=== PATIENT | male | born 1940 | race Asian ===

== ENCOUNTER 2017-08-05 21:37 | Inpatient (IN) | payer MEDICAID, MEDICARE ==
[~2017-08-05] VITALS: Ht 177.8 cm; Wt 81.6 kg
[2017-08-05] MEDS ORDERED: Sodium Chloride 500ML 500 ML IV ONE (21:47)
[2017-08-05 22:16] LABS: BASOPHILS % (AUTO) 0.8 % (0.0-2.0); EOSINOPHILS % (AUTO) 0.3 % (0.0-3.0); HEMATOCRIT 48.8 % (42.0-52.0); HEMOGLOBIN 15.4 G/DL (14.2-18.0); LYMPHOCYTES % (AUTO) 18.9 % (20.0-45.0); MEAN CORPUSCULAR VOLUME 88 FL (80-99); MONOCYTES % (AUTO) 11.2 % (1.0-10.0); NEUTROPHILS % (AUTO) 68.8 % (45.0-75.0); PLATELET COUNT 251 K/UL (150-450); RED BLOOD COUNT 5.54 M/UL (4.70-6.10); RED CELL DISTRIBUTION WIDTH 11.5 % (11.6-14.8); WHITE BLOOD COUNT 8.1 K/UL (4.8-10.8)
[2017-08-05 22:23] VITALS: BP 153/81
[2017-08-05 22:34] LABS: ANION GAP 11 mmol/L (5-15); BLOOD UREA NITROGEN 24 mg/dL (7-18); CALCIUM 9.4 MG/DL (8.5-10.1); CARBON DIOXIDE 23 MMOL/L (21-32); CHLORIDE 103 MMOL/L (98-107); CREATININE 1.9 MG/DL (0.55-1.30); POTASSIUM 4.3 MMOL/L (3.5-5.1); SODIUM 137 MMOL/L (136-145)
[2017-08-05 22:49] LABS: ALANINE AMINOTRANSFERASE 14 U/L (12-78); ALBUMIN 4.1 G/DL (3.4-5.0); ALKALINE PHOSPHATASE 82 U/L (46-116); ASPARTATE AMINO TRANSFERASE 24 U/L (15-37); BILIRUBIN,TOTAL 0.6 MG/DL (0.2-1.0); CREATINE KINASE 337 U/L (26-308)
[2017-08-05 23:53] VITALS: BP 112/61
[2017-08-06] VITALS (7 sets, daily range): BP systolic 95–141; BP diastolic 63–86
[2017-08-06] MEDS ORDERED: NAMENDA10 MG ORAL (00:57)
[2017-08-06] MEDS ORDERED: CATAPRES0.1 MG ORAL (00:57)
[2017-08-06] MEDS ORDERED: NORVASC10 MG ORAL (00:57)
[2017-08-06] MEDS ORDERED: MILK OF MA400 MG/51 ORAL (00:57)
[2017-08-06] MEDS ORDERED: THERA M PLUS T1 EAC2 PO (00:57)
[2017-08-06] MEDS ORDERED: VITAMIN D400 INTLU ORAL (00:57)
[2017-08-06] MEDS ORDERED: THIAMINE HCL100 MG ORAL (00:57)
--- NOTE | 2017-08-06 03:23 | Emergency Room Report ---
History of Present Illness General Chief Complaint: General Complaint Source: Medical Record, EMS Present Illness HPI Patient presents from nursing facility with complaints of weakness There was a report of specific left-sided weakness Patient himself is nonverbal This does limit the history of present illness significantly There was no reports of vomiting or diarrhea Unknown regarding fever Unknown regarding rash The onset of symptoms has not been identified Last well-known time is not known Allergies: Coded Allergies: No Known Allergies (Unverified , 08/05/17) Patient History Limited by: medical condition Pertinent Family History: unable to obtain Reviewed Nursing Documentation: PMH: Agreed, PSxH: Agreed Nursing Documentation-PMH Hx Hypertension: Yes Hx Diabetes: Yes Hx Dementia: Yes Review of Systems All Other Systems: limited - Other than the ones mentioned in the history of present illness all others are reviewed however they do stay limited due to the patient's mental status Physical Exam Vital Signs Date Time Temp Pulse Resp B/P (MAP) Pulse Ox O2 Delivery O2 Flow Rate FiO2 08/05/17 21:37 100.9 69 18 165/93 98 Room Air Sp02 EP Interpretation: reviewed, normal General Appearance: no apparent distress Head: normocephalic, atraumatic Eyes: bilateral eye PERRL, bilateral eye EOMI ENT: hearing grossly normal, normal pharynx, TMs + canals normal, uvula midline , other - There is a questionable drooping of the right facial area Neck: full range of motion, supple, no meningismus, no bony tend Respiratory: lungs clear, normal breath sounds, no rhonchi, no respiratory distress, no retraction, no accessory muscle use Cardiovascular #1: normal peripheral pulses, regular rate, rhythm, no edema, no gallop, no JVD, no murmur Gastrointestinal: normal bowel sounds, non tender, soft, no mass, no organomegaly, non-distended, no guarding, no hernia, no pulsatile mass, no rebound Genitourinary: no CVA tenderness Musculoskeletal: other - 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, no signs of any drift Neurologic: responsive - Patient does not follow commands very well, baseline deficit is noted, sensory intact Psychiatric: mood/affect normal Skin: normal color, no rash, warm/dry, palpation normal Lymphatic: normal inspection, no adenopathy Medical Decision Making Diagnostic Impression: Primary Impression: Generalized weakness ER Course Patient is a fairly complex patient with multiple differential to consideration including but not limited to cardiac cardiopulmonary , intracranial and vascular emergencies Patient's CT head does not show any acute disease Baseline blood work are appropriate Patient does not meet thrombolytic criteria as the last known well time is unknown Patient admitted for further inpatient care Labs Test 08/05/17 22:06 White Blood Count 8.1 K/UL (4.8-10.8) Red Blood Count 5.54 M/UL (4.70-6.10) Hemoglobin 15.4 G/DL (14.2-18.0) Hematocrit 48.8 % (42.0-52.0) Mean Corpuscular Volume 88 FL (80-99) Mean Corpuscular Hemoglobin 27.8 PG (27.0-31.0) Mean Corpuscular Hemoglobin Concent 31.6 G/DL (32.0-36.0) Red Cell Distribution Width 11.5 % (11.6-14.8) Platelet Count 251 K/UL (150-450) Mean Platelet Volume 6.1 FL (6.5-10.1) Neutrophils (%) (Auto) 68.8 % (45.0-75.0) Lymphocytes (%) (Auto) 18.9 % (20.0-45.0) Monocytes (%) (Auto) 11.2 % (1.0-10.0) Eosinophils (%) (Auto) 0.3 % (0.0-3.0) Basophils (%) (Auto) 0.8 % (0.0-2.0) Sodium Level 137 MMOL/L (136-145) Potassium Level 4.3 MMOL/L (3.5-5.1) Chloride Level 103 MMOL/L (98-107) Carbon Dioxide Level 23 MMOL/L (21-32) Anion Gap 11 mmol/L (5-15) Blood Urea Nitrogen 24 mg/dL (7-18) Creatinine 1.9 MG/DL (0.55-1.30) Estimat Glomerular Filtration Rate mL/min (>60) Glucose Level 116 MG/DL (74-106) Calcium Level 9.4 MG/DL (8.5-10.1) Total Bilirubin 0.6 MG/DL (0.2-1.0) Aspartate Amino Transf (AST/SGOT) 24 U/L (15-37) Alanine Aminotransferase (ALT/SGPT) 14 U/L (12-78) Alkaline Phosphatase 82 U/L (46-116) Total Creatine Kinase 337 U/L (26-308) Creatine Kinase MB 1.0 NG/ML (0.0-3.6) Creatine Kinase MB Relative Index 0.2 Troponin I 0.000 ng/mL (0.000-0.056) Pro-B-Type Natriuretic Peptide 197 pg/mL (0-125) Total Protein 8.4 G/DL (6.4-8.2) Albumin 4.1 G/DL (3.4-5.0) Globulin 4.3 g/dL Albumin/Globulin Ratio 1.0 (1.0-2.7) Lipase 137 U/L (73-393) Rhythm Strip Diag. Results EP Interpretation: yes Rate: 66 Rhythm: NSR, no PVC's, no ectopy Chest X-Ray Diagnostic Results Chest X-Ray Diagnostic Results : Chest X-Ray Ordered: Yes # of Views/Limited/Complete: 1 View Indication: Chest Pain EP Interpretation: Yes Interpretation: no consolidation, no effusion, no pneumothorax Impression: No acute disease Electronically Signed by: Forrest Milian DO CT/MRI/US Diagnostic Results CT/MRI/US Diagnostic Results : Impression CT head: no acute disease Last Vital Signs Date Time Temp Pulse Resp B/P (MAP) Pulse Ox O2 Delivery O2 Flow Rate FiO2 08/06/17 01:26 99.9 08/06/17 01:10 85 18 132/67 96 Room Air Status: improved Disposition: HOME, SELF-CARE Condition: Serious Referrals: JEFERSON ORTEGA (PCP) Additional Instructions: Patient noted to [facility] for further inpatient care FORREST MILIAN D.O. Aug 06, 2017 03:23
[2017-08-06] MEDS ORDERED: Nitroglycerin Subl 0.4mg tab SL PRN (07:00)
[2017-08-06] MEDS ORDERED: Miralax 17gm pkt ORAL PRN (07:00)
[2017-08-06] MEDS ORDERED: LORazepam Inj 2mg/ml 1ml IV PRN (07:00)
[2017-08-06] MEDS ORDERED: Morphine Sulfate 2mg/ml Inj IVP PRN (07:00)
[2017-08-06] MEDS ORDERED: Promethazine/Codeine 5ml UD ORAL PRN (07:00)
[2017-08-06] MEDS ORDERED: Mylanta II UD 30ml ORAL PRN (07:00)
[2017-08-06] MEDS ORDERED: Albuterol/Ipratropium 3ml neb HHN PRN (07:00)
[2017-08-06] MEDS ORDERED: D5 1/2NS 1,000 ML IV SCH ×2 (08:00→18:30)
--- NOTE | 2017-08-06 08:28 | Diagnostic Imaging Report ---
Indication: Altered mental status Technique: Continuous helical CT scanning of the head was performed utilizing automated exposure control without intravenous contrast material. Axial and coronal reconstructions were obtained. Comparison: None CT dose: Total DLP 1358.49 mGycm; CTDI vol 70.38 mGy Findings: There is no acute intracranial hemorrhage, mass effect or cortical edema. The ventricles, cisterns and sulci are prominent consistent with atrophy. Periventricular hypoattenuation is seen, a nonspecific finding. The posterior fossa and fourth ventricle are unremarkable. Examination of the skull base limited due to patient motion. No displaced calvarial fracture. Mastoid air cells grossly clear. There is mucosal thickening in the right sphenoid sinus and some ethmoid air cells. There is likely prior left scleral banding. Atherosclerotic vascular calcifications noted. Impression: No evidence of acute intracranial hemorrhage, mass effect or cortical edema. MRI may be obtained for more sensitive evaluation as clinically indicated. Atrophy and nonspecific periventricular hypoattenuation suggestive of chronic ischemic microvascular changes. This corresponds with the statrad preliminary report. The CT scanner at [facility] is accredited by the [employer] and the scans are performed using protocols designed to limit radiation exposure to as low as reasonably achievable to attain images of sufficient resolution adequate for diagnostic evaluation.
[2017-08-06] MEDS ORDERED: Memantine 10mg tab ORAL SCH (09:00)
[2017-08-06] MEDS: Heparin 5000 units/ml inj SUBQ SCH ×2 (09:37→21:35)
--- NOTE | 2017-08-06 10:48 | Neurology Progress Note ---
Objective Physical Exam Last Vital Signs Date Time Temp Pulse Resp B/P (MAP) Pulse Ox O2 Delivery O2 Flow Rate FiO2 08/06/17 09:34 132/86 08/06/17 09:33 99 08/06/17 04:00 98.7 19 95 Room Air Laboratory Tests Test 08/05/17 22:06 White Blood Count 8.1 K/UL (4.8-10.8) Red Blood Count 5.54 M/UL (4.70-6.10) Hemoglobin 15.4 G/DL (14.2-18.0) Hematocrit 48.8 % (42.0-52.0) Mean Corpuscular Volume 88 FL (80-99) Mean Corpuscular Hemoglobin 27.8 PG (27.0-31.0) Mean Corpuscular Hemoglobin Concent 31.6 G/DL (32.0-36.0) L Red Cell Distribution Width 11.5 % (11.6-14.8) L Platelet Count 251 K/UL (150-450) Mean Platelet Volume 6.1 FL (6.5-10.1) L Neutrophils (%) (Auto) 68.8 % (45.0-75.0) Lymphocytes (%) (Auto) 18.9 % (20.0-45.0) L Monocytes (%) (Auto) 11.2 % (1.0-10.0) H Eosinophils (%) (Auto) 0.3 % (0.0-3.0) Basophils (%) (Auto) 0.8 % (0.0-2.0) Sodium Level 137 MMOL/L (136-145) Potassium Level 4.3 MMOL/L (3.5-5.1) Chloride Level 103 MMOL/L (98-107) Carbon Dioxide Level 23 MMOL/L (21-32) Anion Gap 11 mmol/L (5-15) Blood Urea Nitrogen 24 mg/dL (7-18) H Creatinine 1.9 MG/DL (0.55-1.30) H Estimat Glomerular Filtration Rate mL/min (>60) Glucose Level 116 MG/DL (74-106) H Calcium Level 9.4 MG/DL (8.5-10.1) Total Bilirubin 0.6 MG/DL (0.2-1.0) Aspartate Amino Transf (AST/SGOT) 24 U/L (15-37) Alanine Aminotransferase (ALT/SGPT) 14 U/L (12-78) Alkaline Phosphatase 82 U/L (46-116) Total Creatine Kinase 337 U/L (26-308) H Creatine Kinase MB 1.0 NG/ML (0.0-3.6) Creatine Kinase MB Relative Index 0.2 Troponin I 0.000 ng/mL (0.000-0.056) Pro-B-Type Natriuretic Peptide 197 pg/mL (0-125) H Total Protein 8.4 G/DL (6.4-8.2) H Albumin 4.1 G/DL (3.4-5.0) Globulin 4.3 g/dL Albumin/Globulin Ratio 1.0 (1.0-2.7) Lipase 137 U/L (73-393) Impression/Recommendations Recommendations # [id number] JOSE MORALES Aug 06, 2017 10:48
[2017-08-06] MEDS ORDERED: Aspirin EC 81mg tab ORAL SCH (12:00)
[2017-08-06 12:21] LABS: CKMB 1.4 NG/ML (0.0-3.6)
--- NOTE | 2017-08-06 13:14 | Cardiology Report ---
APPROVED REPORT EKG Measurement Heart [id number] [place] [id number] Sinus rhythm with premature atrial complexes Nonspecific T wave abnormality Abnormal ECG
--- NOTE | 2017-08-06 13:52 | Diagnostic Imaging Report ---
Indication: Chest pain Technique: XRAY Chest 1v Comparison: None Findings: Heart is mildly enlarged. Aorta is calcified and tortuous. There is pulmonary vascular congestion. There is no definite focal consolidation. No large pleural effusion. No pneumothorax. There is no acute osseous abnormality seen. Impression: Cardiomegaly and mild pulmonary vascular congestion. Study was obtained via the emergency department however patient admitted to the hospital time of dictation of final report.
--- NOTE | 2017-08-06 16:07 | GI Initial Consult Note ---
Michelle Knight N.P. 08/06/17 1607: History of Present Illness General Date patient seen: Aug 06, 2017 Time patient seen: 15:58 Reason for Hospitalization: General Complaint Referring physician: JEFERSON ORTEGA Reason for Consultation: DYSPHAGIA/PEG Present Illness HPI Patient presents from nursing facility with complaints of weakness There was a report of specific left-sided weakness Patient himself is nonverbal This does limit the history of present illness significantly There was no reports of vomiting or diarrhea Unknown regarding fever Unknown regarding rash The onset of symptoms has not been identified Last well-known time is not known GI consulted for PEG evaluation. ROS limited, patient is non verbal r/o CVA. Seen on floor, awake alert NAD with no active s/sx of N/V/D. ST evaluation noted, patient had failed the swallow evaluation. Labs reviewed. No leukocytosis. No anemia. Renal insufficiency. Unknown history of endoscopies / colonoscopies. Home Meds Reported Medications Magnesium Hydroxide* (MILK OF MAGNESIA*) 400 Mg/5 Ml Oral.susp, 30 ML ORAL Q6HR Y for Constipation, ML 08/06/17 Memantine Hcl* (NAMENDA*) 10 Mg Tablet, 10 MG ORAL TWICE A DAY, TAB 08/06/17 Clonidine Hcl* (CATAPRES*) 0.1 Mg Tablet, 0.1 MG ORAL DAILY, TAB 08/06/17 Amlodipine Besylate (Norvasc) 10 Mg Tablet, 10 MG ORAL DAILY, TAB 08/06/17 Vitamin D (Vitamin D3) 400 Unit Tablet, 1000 UNITS ORAL DAILY, TAB 08/06/17 Thiamine Hcl (VITAMIN B1*) 100 Mg Tablet, 100 MG ORAL DAILY, TAB 08/06/17 Multivits,Ca,Minerals/Iron/FA (Thera M Plus Tablet) 1 Each Tablet, 1 EACH PO, TAB 08/06/17 Med list reviewed/reconciled: Yes Allergies: Coded Allergies: No Known Allergies (Unverified , 08/05/17) Patient History Limited by: medical condition History Provided By: Medical Record PMH Narrative Limited by: medical condition Pertinent Family History: unable to obtain Reviewed Nursing Documentation: PMH: Agreed, PSxH: Agreed Nursing Documentation-PMH Hx Hypertension: Yes Hx Diabetes: Yes Hx Dementia: Yes Review of Systems All Other Systems: limited Physical Exam Vital Signs Date Time Temp Pulse Resp B/P (MAP) Pulse Ox O2 Delivery O2 Flow Rate FiO2 08/05/17 21:37 100.9 69 18 165/93 98 Room Air Sp02 EP Interpretation: reviewed, normal Labs Laboratory Tests Test 08/05/17 22:06 08/06/17 11:00 White Blood Count 8.1 K/UL (4.8-10.8) Red Blood Count 5.54 M/UL (4.70-6.10) Hemoglobin 15.4 G/DL (14.2-18.0) Hematocrit 48.8 % (42.0-52.0) Mean Corpuscular Volume 88 FL (80-99) Mean Corpuscular Hemoglobin 27.8 PG (27.0-31.0) Mean Corpuscular Hemoglobin Concent 31.6 G/DL (32.0-36.0) L Red Cell Distribution Width 11.5 % (11.6-14.8) L Platelet Count 251 K/UL (150-450) Mean Platelet Volume 6.1 FL (6.5-10.1) L Neutrophils (%) (Auto) 68.8 % (45.0-75.0) Lymphocytes (%) (Auto) 18.9 % (20.0-45.0) L Monocytes (%) (Auto) 11.2 % (1.0-10.0) H Eosinophils (%) (Auto) 0.3 % (0.0-3.0) Basophils (%) (Auto) 0.8 % (0.0-2.0) Sodium Level 137 MMOL/L (136-145) Potassium Level 4.3 MMOL/L (3.5-5.1) Chloride Level 103 MMOL/L (98-107) Carbon Dioxide Level 23 MMOL/L (21-32) Anion Gap 11 mmol/L (5-15) Blood Urea Nitrogen 24 mg/dL (7-18) H Creatinine 1.9 MG/DL (0.55-1.30) H Estimat Glomerular Filtration Rate mL/min (>60) Glucose Level 116 MG/DL (74-106) H Calcium Level 9.4 MG/DL (8.5-10.1) Total Bilirubin 0.6 MG/DL (0.2-1.0) Aspartate Amino Transf (AST/SGOT) 24 U/L (15-37) Alanine Aminotransferase (ALT/SGPT) 14 U/L (12-78) Alkaline Phosphatase 82 U/L (46-116) Total Creatine Kinase 337 U/L (26-308) H 688 U/L (26-308) H Creatine Kinase MB 1.0 NG/ML (0.0-3.6) 1.4 NG/ML (0.0-3.6) Creatine Kinase MB Relative Index 0.2 0.2 Troponin I 0.000 ng/mL (0.000-0.056) Pro-B-Type Natriuretic Peptide 197 pg/mL (0-125) H Total Protein 8.4 G/DL (6.4-8.2) H Albumin 4.1 G/DL (3.4-5.0) Globulin 4.3 g/dL Albumin/Globulin Ratio 1.0 (1.0-2.7) Pending Lipase 137 U/L (73-393) Erythrocyte Sedimentation Rate 24 MM/HR (0-20) H Total Protein (PEP) Pending Albumin (PEP) Pending Globulin (PEP) Pending [id number] Pending [id number] Pending Beta Globulins Pending Beta Gamma Globulin Pending PEP Abnormal Protein Bands Pending Protein Electrophoresis Interpret Pending Vitamin B1 Level Pending Vitamin B6 Level Pending Vitamin B12 Level 333 PG/ML (193-986) Alpha-Tocopherol Level Pending Anti-Nuclear Antibody Screen Pending General Appearance: well appearing, no apparent distress, alert Head: normocephalic EENT: PERRL/EOMI, normal ENT inspection Neck: supple Respiratory: normal breath sounds, no respiratory distress Cardiovascular: normal rate Gastrointestinal: normal inspection, non tender, soft, normal bowel sounds, non -distended Rectal: deferred Genitourinary: deferred Musculoskeletal: normal inspection, back normal Neurologic: alert, responsive Skin: normal inspection, normal color, no rash, warm/dry, palpation normal, well hydrated Lymphatic: normal inspection, no adenopathy Current Medications Current Medications Medications (Trade) Dose Ordered Sig/Jay Route PRN Reason Start Time Stop Time Status Last Admin Dose Admin Acetaminophen (Tylenol) 650 mg Q4H PRN ORAL fever (temp>100.5F) 08/06/17 07:00 09/05/17 06:59 08/06/17 09:38 Al Hydroxide/Mg Hydroxide (Mylanta II) 30 ml Q6H PRN ORAL dyspepsia 08/06/17 07:00 09/05/17 06:59 Albuterol/ Ipratropium (Albuterol/ Ipratropium) 3 ml Q4H PRN HHN Shortness of Breath 08/06/17 07:00 08/11/17 06:59 Amlodipine Besylate (Norvasc) 10 mg DAILY ORAL 08/06/17 09:00 09/05/17 08:59 08/06/17 09:33 Aspirin (Ecotrin) 81 mg DAILY ORAL 08/06/17 12:00 09/05/17 11:59 08/06/17 13:20 Clonidine HCl (Catapres Tab) 0.1 mg DAILY ORAL 08/06/17 09:00 09/05/17 08:59 08/06/17 09:34 Clonidine HCl (Catapres Tab) 0.1 mg Q4H PRN ORAL For High Blood Pressure 08/06/17 07:00 09/05/17 06:59 Dextrose (Dextrose 50%) STAT PRN IV Hypoglycemia 08/06/17 07:00 09/05/17 06:59 Dextrose/Sodium Chloride 1,000 ml @ 50 mls/hr Q20H IV 08/06/17 08:00 09/05/17 07:59 08/06/17 09:40 Heparin Sodium (Porcine) (Heparin 5000 units/ml) 5,000 units EVERY 12 HOURS SUBQ 08/06/17 09:00 09/05/17 08:59 08/06/17 09:37 Lorazepam (Ativan 2mg/ml 1ml) 0.5 mg Q4H PRN IV For Anxiety 08/06/17 07:00 08/13/17 06:59 Morphine Sulfate (Morphine Sulfate) 1 mg Q4H PRN IVP For Pain 7-10 08/06/17 07:00 08/13/17 06:59 Nitroglycerin (Ntg) 0.4 mg Q5M X 3 DOSES PRN SL Prn Chest Pain 08/06/17 07:00 09/05/17 06:59 Ondansetron HCl (Zofran) 4 mg Q6H PRN IVP Nausea & Vomiting 08/06/17 07:00 09/05/17 06:59 Polyethylene Glycol (Miralax) 17 gm HSPRN PRN ORAL Constipation 08/06/17 07:00 09/05/17 06:59 Promethazine HCl/ Codeine (Phenergan with Codeine) 5 ml Q4H PRN ORAL For Cough 08/06/17 07:00 09/05/17 06:59 08/06/17 09:59 Temazepam (Restoril) 15 mg HSPRN PRN ORAL Insomnia 08/06/17 07:00 08/13/17 06:59 GI: Plan Problems: (1) Encounter for PEG (percutaneous endoscopic gastrostomy) (2) Dysphagia (3) Generalized weakness Plan fu MRI r/o CVA ST evaluation reviewed >> maintain NPO, video swallow for wednesday will consider PEG pending swallow study insert NGT, start TFs after imaging confirmation PPI OT evaluation fu labs fu neuro recs Discussed with Dr. Gómez. Thank you for this patient referral, we will follow. LISSA GÓMEZ 08/09/17 1018: History of Present Illness General Reason for Hospitalization: General Complaint Present Illness Home Meds Reported Medications Magnesium Hydroxide* (MILK OF MAGNESIA*) 400 Mg/5 Ml Oral.susp, 30 ML ORAL Q6HR Y for Constipation, ML 08/06/17 Memantine Hcl* (NAMENDA*) 10 Mg Tablet, 10 MG ORAL TWICE A DAY, TAB 08/06/17 Clonidine Hcl* (CATAPRES*) 0.1 Mg Tablet, 0.1 MG ORAL DAILY, TAB 08/06/17 Amlodipine Besylate (Norvasc) 10 Mg Tablet, 10 MG ORAL DAILY, TAB 08/06/17 Vitamin D (Vitamin D3) 400 Unit Tablet, 1000 UNITS ORAL DAILY, TAB 08/06/17 Thiamine Hcl (VITAMIN B1*) 100 Mg Tablet, 100 MG ORAL DAILY, TAB 08/06/17 Multivits,Ca,Minerals/Iron/FA (Thera M Plus Tablet) 1 Each Tablet, 1 EACH PO, TAB 08/06/17 Allergies: Coded Allergies: No Known Allergies (Unverified , 08/05/17) GI: Plan Plan The patient was seen and examined at bedside and all new and available data was reviewed in the patients chart. I agree with the above findings, impression and plan. (Patient seen earlier today. Signature stamp does not reflect patient encounter time.). - MD Antonia Armas,Michelle Tanner Gomez Aug 06, 2017 16:07 LISSA GÓMEZ Aug 09, 2017 10:18
--- NOTE | 2017-08-06 17:01 | Consultation ---
DATE OF CONSULTATION: 08/06/2017 NEUROLOGICAL CONSULTATION CONSULTING PHYSICIAN: Arvin Aldana M.D. REQUESTING PHYSICIAN: Iglesia Reed D.O. HISTORY OF PRESENT ILLNESS: This is a 76-year-old male seen in neurological consultation to evaluate possible acute stroke. The patient is unable to provide with any meaningful history and this was obtained from medical records. Apparently at the nursing facility, he was noted to have left-sided weakness, facial droop, and confusion. Paramedics were called to the scene. Vital signs on admission with low-grade fever 100.9, blood pressure 153/81. On admission, there was no evidence of vomiting or diarrhea. The patient described as being nonverbal and unable to provide any history. He was not able to follow commands properly. His initial diagnostic studies included laboratory work with unremarkable CBC study. Chemistry panel obtained with BUN of 24, creatinine 1.9, blood sugar 116. CPK 337. BNP 197. Total protein of 8.4 with normal troponin. CAT scan of the brain was obtained revealing generalized atrophy but also periventricular hypoattenuation. No evidence of acute ischemia, midline shift, or hemorrhage. Chest x-ray, no acute disease. EKG normal sinus rhythm, no PVCs, no ectopies. The patient was admitted for further assessment. 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 MEDICATIONS: Prior to admission treatment included amlodipine, clonidine, Namenda, thiamine, vitamin D, multivitamins. ALLERGIES: None reported. SOCIAL HISTORY: Resident of nursing facility. Reportedly had a history of alcohol abuse. FAMILY HISTORY: Unavailable. REVIEW OF SYMPTOMS: Unable to obtain due the patient's status was stating that he is feeling well. He is not sure why he is in the hospital. PHYSICAL EXAMINATION: GENERAL: A well-developed and well-nourished elderly man found to be lying in bed asleep but is arousable. VITAL SIGNS: Now stable. Blood pressure 132/86, temperature 99.9. HEENT: Head normocephalic. No evidence of trauma. Eyes, ears, and throat are clear. NECK: Supple. No meningeal signs. MUSCULOSKELETAL: Unremarkable. There are no deformities. Peripheral pulses 1+ symmetric. There is urinary incontinence. MENTAL STATUS: He is arousable. He is able to respond yes or no. He gave his age of 62. He said that he has family in [place] but not here. He was able to follow simple commands. CRANIAL NERVE II: Pupils 2 mm, responding to light and accommodation. Extraocular movement intact. No nystagmus. CRANIAL NERVE V: Normal corneal responses. CRANIAL NERVE VII: No gross asymmetry. CRANIAL NERVE VIII: Normal hearing. CRANIAL NERVE IX THROUGH XII: Tongue is in midline. Symmetric palate elevation. MOTOR EXAMINATION: Revealed normal muscle tone. Strength 5/5 in both upper extremities as he was able to lift arms against the gravity. The patient was unable to lift against gravity both lower extremities but able to flex both legs and wiggle toes. IMPRESSION: 1. New onset generalized weakness and fever, rule out sepsis, rule out viral syndrome. 2. 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 3. Diabetes rule out diabetic polyneuropathy. 4. Vascular dementia. RECOMMENDATION: 1. Recheck CPK, CRISTINO, sedimentation rate, B12, folate, vitamin D, , and vitamin B1 level. 2. Continue with thiamine supplements. 3. Get physical and occupational therapy. 4. Check blood cultures, urine culture. 5. Started on aspirin 81 mg daily. 6. Recheck lipid panel. Thank you for allowing me to see this interesting patient in neurological consultation. Arvin Aldana M.D. DR: Kwan JOB#: [id number] CC:
--- NOTE | 2017-08-06 17:12 | Consultation ---
History of Present Illness General Date patient seen: Aug 06, 2017 Chief Complaint: General Complaint Referring physician: JEFERSON ORTEGA Reason for Consultation: DYSPHAGIA/PEG Present Illness HPI 75 year old male with hx of dementia, presents from nursing facility with complaints of weakness, left-sided weakness There was no reports of vomiting or diarrhea. Pt is admitted to rule out any new CVA. Allergies: Coded Allergies: No Known Allergies (Unverified , 08/05/17) Medication History Scheduled Amlodipine Besylate (Norvasc), 10 MG ORAL DAILY, (Reported) Clonidine Hcl* (Catapres*), 0.1 MG ORAL DAILY, (Reported) Memantine Hcl* (Namenda*), 10 MG ORAL TWICE A DAY, (Reported) Thiamine Hcl (Vitamin B1*), 100 MG ORAL DAILY, (Reported) Vitamin D (Vitamin D3), 1,000 UNITS ORAL DAILY, (Reported) Scheduled PRN Magnesium Hydroxide* (Milk Of Magnesia*), 30 ML ORAL Q6HR PRN for Constipation, (Reported) Miscellaneous Medications Multivits,Ca,Minerals/Iron/FA (Thera M Plus Tablet), 1 EACH PO, (Reported) Patient History Healthcare decision maker Resuscitation status Full Code Advanced Directive on File Yes Past Medical/Surgical History Past Medical/Surgical History: (1) History of dementia Review of Systems All Other Systems: negative except mentioned in HPI Physical Exam General Appearance: WD/WN Lines, tubes and drains: peripheral HEENT: normocephalic, atraumatic Neck: non-tender, supple, limited range of motion Respiratory/Chest: lungs clear, normal breath sounds Cardiovascular/Chest: normal peripheral pulses, regular rhythm Abdomen: normal bowel sounds Genitourinary/Rectal: normal rectal exam Last 24 Hour Vital Signs Date Time Temp Pulse Resp B/P (MAP) Pulse Ox O2 Delivery O2 Flow Rate FiO2 08/06/17 16:04 98.7 101 21 130/83 95 Room Air 08/06/17 12:00 98.7 94 18 95/63 95 Room Air 08/06/17 10:37 98.9 08/06/17 09:34 132/86 08/06/17 09:33 99 132/86 08/06/17 08:00 99.9 91 20 132/86 94 Room Air 08/06/17 04:00 98.7 76 19 111/79 95 Room Air 08/06/17 04:00 95 Room Air 08/06/17 01:26 99.9 08/06/17 01:10 100.7 85 18 132/67 96 Room Air 08/06/17 01:10 100.7 85 18 132/67 96 Room Air 08/05/17 23:53 101.1 73 26 112/61 94 Room Air 08/05/17 22:23 100.9 68 20 153/81 98 Room Air 08/05/17 21:37 100.9 69 18 165/93 98 Room Air Intake and Output 08/05/17 08/06/17 19:00 07:00 Intake Total 0 ml Balance 0 ml Intake Oral 0 ml # Voids 1 # Bowel Movements 1 Laboratory Tests Test 08/05/17 22:06 08/06/17 11:00 White Blood Count 8.1 K/UL (4.8-10.8) Red Blood Count 5.54 M/UL (4.70-6.10) Hemoglobin 15.4 G/DL (14.2-18.0) Hematocrit 48.8 % (42.0-52.0) Mean Corpuscular Volume 88 FL (80-99) Mean Corpuscular Hemoglobin 27.8 PG (27.0-31.0) Mean Corpuscular Hemoglobin Concent 31.6 G/DL (32.0-36.0) L Red Cell Distribution Width 11.5 % (11.6-14.8) L Platelet Count 251 K/UL (150-450) Mean Platelet Volume 6.1 FL (6.5-10.1) L Neutrophils (%) (Auto) 68.8 % (45.0-75.0) Lymphocytes (%) (Auto) 18.9 % (20.0-45.0) L Monocytes (%) (Auto) 11.2 % (1.0-10.0) H Eosinophils (%) (Auto) 0.3 % (0.0-3.0) Basophils (%) (Auto) 0.8 % (0.0-2.0) Sodium Level 137 MMOL/L (136-145) Potassium Level 4.3 MMOL/L (3.5-5.1) Chloride Level 103 MMOL/L (98-107) Carbon Dioxide Level 23 MMOL/L (21-32) Anion Gap 11 mmol/L (5-15) Blood Urea Nitrogen 24 mg/dL (7-18) H Creatinine 1.9 MG/DL (0.55-1.30) H Estimat Glomerular Filtration Rate mL/min (>60) Glucose Level 116 MG/DL (74-106) H Calcium Level 9.4 MG/DL (8.5-10.1) Total Bilirubin 0.6 MG/DL (0.2-1.0) Aspartate Amino Transf (AST/SGOT) 24 U/L (15-37) Alanine Aminotransferase (ALT/SGPT) 14 U/L (12-78) Alkaline Phosphatase 82 U/L (46-116) Total Creatine Kinase 337 U/L (26-308) H 688 U/L (26-308) H Creatine Kinase MB 1.0 NG/ML (0.0-3.6) 1.4 NG/ML (0.0-3.6) Creatine Kinase MB Relative Index 0.2 0.2 Troponin I 0.000 ng/mL (0.000-0.056) Pro-B-Type Natriuretic Peptide 197 pg/mL (0-125) H Total Protein 8.4 G/DL (6.4-8.2) H Albumin 4.1 G/DL (3.4-5.0) Globulin 4.3 g/dL Albumin/Globulin Ratio 1.0 (1.0-2.7) Pending Lipase 137 U/L (73-393) Erythrocyte Sedimentation Rate 24 MM/HR (0-20) H Total Protein (PEP) Pending Albumin (PEP) Pending Globulin (PEP) Pending Tlyvb-6-Ejlyclugl Pending Hargc-3-Jqqoemcle Pending Beta Globulins Pending Beta Gamma Globulin Pending PEP Abnormal Protein Bands Pending Protein Electrophoresis Interpret Pending Vitamin B1 Level Pending Vitamin B6 Level Pending Vitamin B12 Level 333 PG/ML (193-986) Alpha-Tocopherol Level Pending Anti-Nuclear Antibody Screen Pending Height (Feet): 5 Height (Inches): 10.00 Weight (Pounds): 180 Medications Current Medications Medications (Trade) Dose Ordered Sig/Jay Route PRN Reason Start Time Stop Time Status Last Admin Dose Admin Acetaminophen (Tylenol) 650 mg Q4H PRN ORAL fever (temp>100.5F) 08/06/17 07:00 09/05/17 06:59 08/06/17 09:38 Al Hydroxide/Mg Hydroxide (Mylanta II) 30 ml Q6H PRN ORAL dyspepsia 08/06/17 07:00 09/05/17 06:59 Albuterol/ Ipratropium (Albuterol/ Ipratropium) 3 ml Q4H PRN HHN Shortness of Breath 08/06/17 07:00 08/11/17 06:59 Amlodipine Besylate (Norvasc) 10 mg DAILY ORAL 08/06/17 09:00 09/05/17 08:59 08/06/17 09:33 Aspirin (Ecotrin) 81 mg DAILY ORAL 08/06/17 12:00 09/05/17 11:59 08/06/17 13:20 Clonidine HCl (Catapres Tab) 0.1 mg DAILY ORAL 08/06/17 09:00 09/05/17 08:59 08/06/17 09:34 Clonidine HCl (Catapres Tab) 0.1 mg Q4H PRN ORAL For High Blood Pressure 08/06/17 07:00 09/05/17 06:59 Dextrose (Dextrose 50%) STAT PRN IV Hypoglycemia 08/06/17 07:00 09/05/17 06:59 Dextrose/Sodium Chloride 1,000 ml @ 50 mls/hr Q20H IV 08/06/17 08:00 09/05/17 07:59 08/06/17 09:40 Heparin Sodium (Porcine) (Heparin 5000 units/ml) 5,000 units EVERY 12 HOURS SUBQ 08/06/17 09:00 09/05/17 08:59 08/06/17 09:37 Lorazepam (Ativan 2mg/ml 1ml) 0.5 mg Q4H PRN IV For Anxiety 08/06/17 07:00 08/13/17 06:59 Morphine Sulfate (Morphine Sulfate) 1 mg Q4H PRN IVP For Pain 7-10 08/06/17 07:00 08/13/17 06:59 Nitroglycerin (Ntg) 0.4 mg Q5M X 3 DOSES PRN SL Prn Chest Pain 08/06/17 07:00 09/05/17 06:59 Ondansetron HCl (Zofran) 4 mg Q6H PRN IVP Nausea & Vomiting 08/06/17 07:00 09/05/17 06:59 Pantoprazole (Protonix) 40 mg DAILY IVP 08/07/17 09:00 09/06/17 08:59 Polyethylene Glycol (Miralax) 17 gm HSPRN PRN ORAL Constipation 08/06/17 07:00 09/05/17 06:59 Promethazine HCl/ Codeine (Phenergan with Codeine) 5 ml Q4H PRN ORAL For Cough 08/06/17 07:00 09/05/17 06:59 08/06/17 09:59 Temazepam (Restoril) 15 mg HSPRN PRN ORAL Insomnia 08/06/17 07:00 08/13/17 06:59 Assessment/Plan Problem List: (1) CVA (cerebral vascular accident) ICD Codes: I63.9 - Cerebral infarction, unspecified SNOMED: 891105472 (2) Generalized weakness ICD Codes: R53.1 - Weakness SNOMED: 84108323 (3) Dysphagia ICD Codes: R13.10 - Dysphagia, unspecified SNOMED: 17760176, 084383901 (4) History of dementia ICD Codes: Z86.59 - Personal history of other mental and behavioral disorders SNOMED: 069204724 Assessment/Plan NPO Neuro evaluation echo MRI of brain pt ot swallow study. CARLA PARDO Aug 06, 2017 17:12
--- NOTE | 2017-08-06 18:02 | Consultation ---
Consult Note Consult Note asked to eval for renal failure- Patient presents from nursing facility with complaints of weakness There was a report of specific left-sided weakness Patient himself is nonverbal This does limit the history of present illness significantly There was no reports of vomiting or diarrhea Unknown regarding fever Unknown regarding rash The onset of symptoms has not been identified Last well-known time is not known examined data reviewed Assessment/Plan Renal failure- Acute ? underlying Chronic h/o HTN (1) CVA (cerebral vascular accident) (2) Generalized weakness (3) Dysphagia (4) History of dementia Hydrate- monitor renal parameters UA and Urine studies Adjust BP meds per consultants SHAMAR NORMAN Aug 06, 2017 18:02
[2017-08-06] MEDS ORDERED: Sodium Chloride 500ML 500 ML IV ONE (18:15)
--- NOTE | 2017-08-06 18:51 | Diagnostic Imaging Report ---
Indication: Altered mental status Technique: MRI the brain performed utilizing T1 sagittal, T2 axial, T1 FLAIR axial, T2 FLAIR axial, T2*GRE and diffusion axial images without gadolinium. Comparison: Correlation made to concurrent head CT Findings: Sensitive images degraded by patient motion, particularly the GRE sequence. No diffusion abnormalities are seen on diffusion weighted imaging. The sulci, ventricles and cisterns are prominent consistent with atrophy. Periventricular and supratentorial white matter T2 hyperintensity are seen without mass effect. There is no shift of midline structures. No significant extra-axial collections of fluid or blood are demonstrated. The sella and parasellar regions are unremarkable. Expected signal flow voids are seen of the vessels of the skull base. Mastoid air cells are clear. There is mucosal thickening noted within the right maxillary sinus, right sphenoid sinus and some ethmoid air cells. No focal bony calvarium or soft tissue lesions are seen. Impression: No evidence of acute infarct, intracranial hemorrhage, mass effect or midline shift. Atrophy and sequela of chronic microvascular ischemia. Paranasal sinus disease.
--- NOTE | 2017-08-06 19:38 | Diagnostic Imaging Report ---
Indication: NG tube placement Technique: XRAY Abdomen 1v Comparison: None Findings: Interval placement of NG tube. Initial film shows tip in the region of the proximal stomach with side port in the region of the gastroesophageal junction. Subsequent film demonstrates advancement of the tube with tip in the mid stomach and side port within the proximal stomach. Impression: Interval placement of NG tube. Tip in the mid stomach.
--- NOTE | 2017-08-06 20:45 | History and Physical Report ---
DATE OF ADMISSION: 08/05/2017 TIME: At 3 p.m. CONSULTANTS: 1. Glenn Velez M.D. 2. Arvin Aldana M.D. 3. Bay Marroquin M.D. 4. Chapincito Mendez M.D. CHIEF COMPLAINT: Weakness, TIA versus CVA, and lethargy. BRIEF HISTORY: The patient is a 69-year-old male from [facility], presented with the above-mentioned diagnosis, admitted to the medical floor for further treatment. Currently, slightly confused, in bed, not talking much. REVIEW OF SYSTEMS: Unavailable. PAST MEDICAL HISTORY: Includes chronic obstructive pulmonary disease, hypertension, and possible encephalopathy. PAST SURGICAL HISTORY: Unknown. ALLERGIES: Denies. MEDICATIONS: Include Ecotrin, Norvasc, Catapres, heparin, albuterol, Tylenol, morphine, MiraLAX, Zofran, Ativan, and Restoril. SOCIAL HISTORY: No smoking. No alcohol. No intravenous drug abuse. FAMILY HISTORY: Noncontributory. PHYSICAL EXAMINATION: GENERAL: Confused in bed, oriented x1, in no acute distress. VITAL SIGNS: Show temperature of 98, pulse 94, respirations 18, and blood pressure 95/62. CARDIOVASCULAR: No murmur. LUNGS: Poor exchange. ABDOMEN: Bowel sounds positive. Distended. EXTREMITIES: No cyanosis, clubbing, or edema. NEUROLOGIC: The patient moves all extremities, slightly weak. LABORATORY DATA: Labs at this time show CBC is normal. ESR is 24. BMP show a BUN and creatinine 24/1.9 and glucose 116. CK 337. BNP is 197. ASSESSMENT: 1. Weakness. 2. Chronic obstructive pulmonary disease. 3. Hypertension. 4. Encephalopathy. 5. Transient ischemic attack versus cerebrovascular accident. 6. Renal insufficiency. 7. Failed swallow evaluation. PLAN: Continue pre-medications. OT, PT, dietary evaluation. CBC and BMP in the morning. Dr. Velez, Dr. Aldana, Dr. Marroquin, Dr. Mendez, and Dr. Garnett to consult. We will continue to follow the patient. Iglesia Reed D.O. DR: GARRISON JOB#: [id number] CC:
[2017-08-06 21:40] LABS: APPEARANCE,URINE CLEAR; BILIRUBIN, URINE NEGATIVE (NEGATIVE); COLOR,URINE PALE YELLOW; GLUCOSE, URINE (UA) NEGATIVE (NEGATIVE); KETONES,URINE 3+ (NEGATIVE); LEUKOCYTE ESTERASE ,URINE NEGATIVE (NEGATIVE); NITRITE,URINE NEGATIVE (NEGATIVE); PH,URINE 5 (4.5-8.0); PROTEIN,URINE 3+ (NEGATIVE); UROBILINOGEN,URINE NORMAL MG/DL (0.0-1.0)
[2017-08-07] VITALS: BP 140/82
[2017-08-07 04:00] VITALS: BP 158/86
[2017-08-07 07:24] LABS: BASOPHILS % (AUTO) 0.3 % (0.0-2.0); HEMATOCRIT 46.9 % (42.0-52.0); HEMOGLOBIN 16.1 G/DL (14.2-18.0); LYMPHOCYTES % (AUTO) 14.7 % (20.0-45.0); MEAN CORPUSCULAR VOLUME 89 FL (80-99); MONOCYTES % (AUTO) 9.5 % (1.0-10.0); NEUTROPHILS % (AUTO) 75.5 % (45.0-75.0); PLATELET COUNT 205 K/UL (150-450); RED BLOOD COUNT 5.27 M/UL (4.70-6.10); RED CELL DISTRIBUTION WIDTH 11.8 % (11.6-14.8); WHITE BLOOD COUNT 9.6 K/UL (4.8-10.8)
[2017-08-07 07:29] LABS: ANION GAP 10 mmol/L (5-15); BLOOD UREA NITROGEN 19 mg/dL (7-18); CALCIUM 8.3 MG/DL (8.5-10.1); CARBON DIOXIDE 23 MMOL/L (21-32); CHLORIDE 101 MMOL/L (98-107); CREATININE 1.6 MG/DL (0.55-1.30); POTASSIUM 3.6 MMOL/L (3.5-5.1); SODIUM 134 MMOL/L (136-145)
[2017-08-07 07:34] LABS: AMMONIA 39 umol/L (11-32)
--- NOTE | 2017-08-07 07:37 | General Progress Note ---
Assessment/Plan Problem List: (1) UTI (urinary tract infection) ICD Codes: N39.0 - Urinary tract infection, site not specified SNOMED: 35036034 (2) Generalized weakness ICD Codes: R53.1 - Weakness SNOMED: 32024393 (3) Dysphagia ICD Codes: R13.10 - Dysphagia, unspecified SNOMED: 99045660, 119323135 (4) History of dementia ICD Codes: Z86.59 - Personal history of other mental and behavioral disorders SNOMED: 426258326 (5) CVA (cerebral vascular accident) ICD Codes: I63.9 - Cerebral infarction, unspecified SNOMED: 477878326 (6) Fever ICD Codes: R50.9 - Fever, unspecified SNOMED: 391852575 Status: unchanged Assessment/Plan ot pt diet abx cbc bmp am Subjective Constitutional: Reports: weakness Allergies: Coded Allergies: No Known Allergies (Unverified , 08/05/17) All Systems: reviewed and negative except above Subjective ng in place calm Objective Last 24 Hour Vital Signs Date Time Temp Pulse Resp B/P (MAP) Pulse Ox O2 Delivery O2 Flow Rate FiO2 08/07/17 04:00 97.0 104 22 158/86 95 08/07/17 00:00 97.9 112 20 140/82 96 08/06/17 22:26 98.9 08/06/17 20:00 101.5 100 22 141/80 98 08/06/17 19:24 98 18 Room Air 21 08/06/17 16:04 98.7 101 21 130/83 95 Room Air 08/06/17 12:00 98.7 94 18 95/63 95 Room Air 08/06/17 09:34 132/86 08/06/17 09:33 99 132/86 08/06/17 08:00 99.9 91 20 132/86 94 Room Air Intake and Output 08/06/17 08/07/17 19:00 07:00 Intake Total 825 ml Balance 825 ml IV Total 825 ml # Voids 6 3 # Bowel Movements 1 Laboratory Tests 08/06/17 11:00: Erythrocyte Sedimentation Rate 24H, Total Creatine Kinase 688H, Creatine Kinase MB 1.4, Creatine Kinase MB Relative Index 0.2, Total Protein (PEP) [Pending], Albumin (PEP) [Pending], Globulin (PEP) [Pending], Albumin/Globulin Ratio [ Pending], Dmbsl-1-Icdwypzdi [Pending], Kjvdn-5-Rzcffetqb [Pending], Beta Globulins [Pending], Beta Gamma Globulin [Pending], PEP Abnormal Protein Bands [ Pending], Protein Electrophoresis Interpret [Pending], Vitamin B1 Level [Pending ], Vitamin B6 Level [Pending], Vitamin B12 Level 333, Alpha-Tocopherol Level [ Pending], Anti-Nuclear Antibody Screen [Pending] 08/06/17 18:04: Urine Color Pale yellow, Urine Appearance Clear, Urine pH 5, Urine Specific Pixley 1.015, Urine Protein 3+H, Urine Glucose (UA) Negative, Urine Ketones 3+H , Urine Occult Blood 3+H, Urine Nitrite Negative, Urine Bilirubin Negative, Urine Urobilinogen Normal, Urine Leukocyte Esterase Negative, Urine RBC 0-2H, Urine WBC 0-2, Urine Squamous Epithelial Cells None, Urine Bacteria None 08/06/17 20:32: Urine Random Sodium 159H 08/07/17 03:00: Urine Eosinophils None seen 08/07/17 05:20: White Blood Count 9.6, Red Blood Count 5.27, Hemoglobin 16.1, Hematocrit 46.9, Mean Corpuscular Volume 89, Mean Corpuscular Hemoglobin 30.6, Mean Corpuscular Hemoglobin Concent 34.4, Red Cell Distribution Width 11.8, Platelet Count 205, Mean Platelet Volume 6.8, Neutrophils (%) (Auto) 75.5H, Lymphocytes (%) (Auto) 14.7L, Monocytes (%) (Auto) 9.5, Eosinophils (%) (Auto) 0.0, Basophils (%) (Auto ) 0.3, Prothrombin Time [Pending], Prothromb Time International Ratio [Pending] , Activated Partial Thromboplast Time [Pending], Sodium Level 134L, Potassium Level 3.6, Chloride Level 101, Carbon Dioxide Level 23, Anion Gap 10, Blood Urea Nitrogen 19H, Creatinine 1.6H, Estimat Glomerular Filtration Rate , Glucose Level 123H, Calcium Level 8.3L, Total Bilirubin [Pending], Aspartate Amino Transf (AST/SGOT) [Pending], Alanine Aminotransferase (ALT/SGPT) [Pending] , Alkaline Phosphatase [Pending], Ammonia 39H, Total Protein [Pending], Albumin [Pending], Globulin [Pending], Triglycerides Level [Pending], Cholesterol Level [Pending], LDL Cholesterol [Pending], HDL Cholesterol [Pending], Cholesterol/ HDL Ratio [Pending], Thyroid Stimulating Hormone (TSH) [Pending] Height (Feet): 5 Height (Inches): 10.00 Weight (Pounds): 180 General Appearance: confused EENT: normal ENT inspection Neck: normal alignment Cardiovascular: normal peripheral pulses, normal rate, regular rhythm Respiratory/Chest: chest wall non-tender, lungs clear, normal breath sounds Abdomen: normal bowel sounds, non tender, soft Extremities: normal inspection Edema: no edema noted Arm (L), no edema noted Arm (R), no edema noted Leg (L), no edema noted Leg (R), no edema noted Pedal (L), no edema noted Pedal (R), no edema noted Generalized Neurologic: responsive, motor weakness Skin: normal pigmentation, warm/dry JEFERSON ORTEGA Aug 07, 2017 07:37
[2017-08-07 07:45] LABS: ALANINE AMINOTRANSFERASE 20 U/L (12-78); ALBUMIN 3.5 G/DL (3.4-5.0); ALBUMIN/GLOBULIN RATIO 0.8 (1.0-2.7); ALKALINE PHOSPHATASE 75 U/L (46-116); ASPARTATE AMINO TRANSFERASE 32 U/L (15-37); BILIRUBIN,TOTAL 0.5 MG/DL (0.2-1.0); CHOLESTEROL 166 MG/DL (< 200); HDL CHOLESTEROL 45 MG/DL (40-60); TRIGLYCERIDES 103 MG/DL (30-150)
[2017-08-07 07:46] LABS: INR 1.1 (0.9-1.1)
[2017-08-07] MEDS ORDERED: Cefepime HCl 2 GM in D5W 55 ML IVPB SCH (08:00)
[2017-08-07 08:57] VITALS: BP 142/77
[2017-08-07] MEDS: Pantoprazole Inj IVP SCH (09:00)
[2017-08-07] MEDS: Aspirin Baby 81mg GT SCH (09:00)
[2017-08-07] MEDS: D5NS 1,000 ML IV SCH (09:01)
[2017-08-07] MEDS: Heparin 5000 units/ml inj SUBQ SCH ×2 (09:04→20:32)
--- NOTE | 2017-08-07 10:32 | Pulmonology Progress Note ---
Assessment/Plan Problems: (1) CVA (cerebral vascular accident) (2) Generalized weakness (3) Dysphagia (4) History of dementia Assessment/Plan improivng continue feeding check electroltyes check cultures continue abx tolerating diet dvt prophylaxis. Subjective ROS Limited/Unobtainable: No Allergies: Coded Allergies: No Known Allergies (Unverified , 08/05/17) Objective Last 24 Hour Vital Signs Date Time Temp Pulse Resp B/P (MAP) Pulse Ox O2 Delivery O2 Flow Rate FiO2 08/07/17 09:00 98 142/77 08/07/17 08:57 98.6 98 20 142/77 96 08/07/17 07:06 97 20 Room Air 21 08/07/17 04:00 97.0 104 22 158/86 95 08/07/17 00:00 97.9 112 20 140/82 96 08/06/17 22:26 98.9 08/06/17 20:00 101.5 100 22 141/80 98 08/06/17 19:24 98 18 Room Air 21 08/06/17 16:04 98.7 101 21 130/83 95 Room Air 08/06/17 12:00 98.7 94 18 95/63 95 Room Air Intake and Output 08/06/17 08/07/17 19:00 07:00 Intake Total 1665 ml Balance 1665 ml Free Water 330 ml IV Total 825 ml Tube Feeding 510 ml # Voids 6 3 # Bowel Movements 1 General Appearance: WD/WN HEENT: normocephalic Respiratory/Chest: chest wall non-tender, normal breath sounds Cardiovascular: normal peripheral pulses, normal rate, regular rhythm Abdomen: normal bowel sounds, soft, non tender Genitourinary: normal external genitalia Extremities: no clubbing 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, no motor/sensory deficits Lymphatic: no neck adenopathy Musculoskeletal: normal muscle bulk Microbiology Date/Time Source Procedure Growth Status 08/05/17 22:06 Blood Blood Culture - Preliminary NO GROWTH AFTER 24 HOURS Resulted 08/05/17 21:40 Blood Blood Culture - Preliminary NO GROWTH AFTER 24 HOURS Resulted Laboratory Tests 08/06/17 11:00: Erythrocyte Sedimentation Rate 24H, Total Creatine Kinase 688H, Creatine Kinase MB 1.4, Creatine Kinase MB Relative Index 0.2, Total Protein (PEP) [Pending], Albumin (PEP) [Pending], Globulin (PEP) [Pending], Albumin/Globulin Ratio [ Pending], Tofqa-2-Qkwtnxhxj [Pending], Rpliq-8-Silhxtfqp [Pending], Beta Globulins [Pending], Beta Gamma Globulin [Pending], PEP Abnormal Protein Bands [ Pending], Protein Electrophoresis Interpret [Pending], Vitamin B1 Level [Pending ], Vitamin B6 Level [Pending], Vitamin B12 Level 333, Alpha-Tocopherol Level [ Pending], Anti-Nuclear Antibody Screen [Pending] 08/06/17 18:04: Urine Color Pale yellow, Urine Appearance Clear, Urine pH 5, Urine Specific Bell 1.015, Urine Protein 3+H, Urine Glucose (UA) Negative, Urine Ketones 3+H , Urine Occult Blood 3+H, Urine Nitrite Negative, Urine Bilirubin Negative, Urine Urobilinogen Normal, Urine Leukocyte Esterase Negative, Urine RBC 0-2H, Urine WBC 0-2, Urine Squamous Epithelial Cells None, Urine Bacteria None 08/06/17 20:32: Urine Random Sodium 159H 08/07/17 03:00: Urine Eosinophils None seen 08/07/17 05:20: White Blood Count 9.6, Red Blood Count 5.27, Hemoglobin 16.1, Hematocrit 46.9, Mean Corpuscular Volume 89, Mean Corpuscular Hemoglobin 30.6, Mean Corpuscular Hemoglobin Concent 34.4, Red Cell Distribution Width 11.8, Platelet Count 205, Mean Platelet Volume 6.8, Neutrophils (%) (Auto) 75.5H, Lymphocytes (%) (Auto) 14.7L, Monocytes (%) (Auto) 9.5, Eosinophils (%) (Auto) 0.0, Basophils (%) (Auto ) 0.3, Prothrombin Time 11.7H, Prothromb Time International Ratio 1.1, Activated Partial Thromboplast Time 34H, Sodium Level 134L, Potassium Level 3.6 , Chloride Level 101, Carbon Dioxide Level 23, Anion Gap 10, Blood Urea Nitrogen 19H, Creatinine 1.6H, Estimat Glomerular Filtration Rate , Glucose Level 123H, Calcium Level 8.3L, Total Bilirubin 0.5, Aspartate Amino Transf (AST /SGOT) 32, Alanine Aminotransferase (ALT/SGPT) 20, Alkaline Phosphatase 75, Ammonia 39H, Total Protein 8.1, Albumin 3.5, Globulin 4.6, Albumin/Globulin Ratio 0.8L, Triglycerides Level 103, Cholesterol Level 166, LDL Cholesterol 110H , HDL Cholesterol 45, Cholesterol/HDL Ratio 3.7, Thyroid Stimulating Hormone ( TSH) 0.772 Current Medications Medications (Trade) Dose Ordered Sig/Jay Route PRN Reason Start Time Stop Time Status Last Admin Dose Admin Acetaminophen (Tylenol) 650 mg Q4H PRN ORAL fever (temp>100.5F) 08/06/17 07:00 09/05/17 06:59 08/06/17 21:27 Albuterol/ Ipratropium (Albuterol/ Ipratropium) 3 ml Q4H PRN HHN Shortness of Breath 08/06/17 07:00 08/11/17 06:59 Amlodipine Besylate (Norvasc) 2.5 mg DAILY ORAL 08/07/17 09:00 09/06/17 08:59 08/07/17 09:00 Aspirin (ASA) 81 mg DAILY GT 08/07/17 09:00 09/06/17 08:59 08/07/17 09:00 Cefepime HCl 2 gm/ Dextrose 55 ml @ 110 mls/hr Q12H IVPB 08/07/17 08:00 08/14/17 07:59 08/07/17 09:13 Dextrose (Dextrose 50%) STAT PRN IV Hypoglycemia 08/06/17 07:00 09/05/17 06:59 Dextrose/Sodium Chloride 1,000 ml @ 50 mls/hr Q20H IV 08/07/17 08:15 09/06/17 08:14 08/07/17 09:01 Heparin Sodium (Porcine) (Heparin 5000 units/ml) 5,000 units EVERY 12 HOURS SUBQ 08/06/17 09:00 09/05/17 08:59 08/07/17 09:04 Lorazepam (Ativan 2mg/ml 1ml) 0.5 mg Q4H PRN IV For Anxiety 08/06/17 07:00 08/13/17 06:59 Morphine Sulfate (Morphine Sulfate) 1 mg Q4H PRN IVP For Pain 7-10 08/06/17 07:00 08/13/17 06:59 Nitroglycerin (Ntg) 0.4 mg Q5M X 3 DOSES PRN SL Prn Chest Pain 08/06/17 07:00 09/05/17 06:59 Ondansetron HCl (Zofran) 4 mg Q6H PRN IVP Nausea & Vomiting 08/06/17 07:00 09/05/17 06:59 Pantoprazole (Protonix) 40 mg DAILY IVP 08/07/17 09:00 09/06/17 08:59 08/07/17 09:00 Polyethylene Glycol (Miralax) 17 gm HSPRN PRN ORAL Constipation 08/06/17 07:00 09/05/17 06:59 Promethazine HCl/ Codeine (Phenergan with Codeine) 5 ml Q4H PRN ORAL For Cough 08/06/17 07:00 09/05/17 06:59 08/06/17 09:59 Temazepam (Restoril) 15 mg HSPRN PRN ORAL Insomnia 08/06/17 07:00 08/13/17 06:59 CARLA PARDO Aug 07, 2017 10:32
[2017-08-07 11:46] VITALS: BP 119/69
--- NOTE | 2017-08-07 13:13 | Nephrology Progress Note ---
Assessment/Plan Problem List: (1) Acute renal failure (2) Dehydration Assessment Renal failure- Acute ? underlying Chronic: Cr down 1.6 h/o HTN (1) CVA (cerebral vascular accident) (2) Generalized weakness (3) Dysphagia (4) History of dementia Plan Hydrate- monitor renal parameters UA and Urine studies Adjust BP meds per consultants Subjective ROS Limited/Unobtainable: No Constitutional: Reports: malaise Objective Objective Last 24 Hour Vital Signs Date Time Temp Pulse Resp B/P (MAP) Pulse Ox O2 Delivery O2 Flow Rate FiO2 08/07/17 11:46 98.2 87 20 119/69 95 08/07/17 09:00 98 142/77 08/07/17 08:57 98.6 98 20 142/77 96 08/07/17 07:06 97 20 Room Air 21 08/07/17 04:00 97.0 104 22 158/86 95 08/07/17 00:00 97.9 112 20 140/82 96 08/06/17 22:26 98.9 08/06/17 20:00 101.5 100 22 141/80 98 08/06/17 19:24 98 18 Room Air 21 08/06/17 16:04 98.7 101 21 130/83 95 Room Air Intake and Output 08/06/17 08/07/17 19:00 07:00 Intake Total 1665 ml Balance 1665 ml Free Water 330 ml IV Total 825 ml Tube Feeding 510 ml # Voids 6 3 # Bowel Movements 1 Laboratory Tests 08/06/17 18:04: Urine Color Pale yellow, Urine Appearance Clear, Urine pH 5, Urine Specific [place] 1.015, Urine Protein 3+H, Urine Glucose (UA) Negative, Urine Ketones 3+H , Urine Occult Blood 3+H, Urine Nitrite Negative, Urine Bilirubin Negative, Urine Urobilinogen Normal, Urine Leukocyte Esterase Negative, Urine RBC 0-2H, Urine WBC 0-2, Urine Squamous Epithelial Cells None, Urine Bacteria None 08/06/17 20:32: Urine Random Sodium 159H 08/07/17 03:00: Urine Eosinophils None seen 08/07/17 05:20: White Blood Count 9.6, Red Blood Count 5.27, Hemoglobin 16.1, Hematocrit 46.9, Mean Corpuscular Volume 89, Mean Corpuscular Hemoglobin 30.6, Mean Corpuscular Hemoglobin Concent 34.4, Red Cell Distribution Width 11.8, Platelet Count 205, Mean Platelet Volume 6.8, Neutrophils (%) (Auto) 75.5H, Lymphocytes (%) (Auto) 14.7L, Monocytes (%) (Auto) 9.5, Eosinophils (%) (Auto) 0.0, Basophils (%) (Auto ) 0.3, Prothrombin Time 11.7H, Prothromb Time International Ratio 1.1, Activated Partial Thromboplast Time 34H, Sodium Level 134L, Potassium Level 3.6 , Chloride Level 101, Carbon Dioxide Level 23, Anion Gap 10, Blood Urea Nitrogen 19H, Creatinine 1.6H, Estimat Glomerular Filtration Rate , Glucose Level 123H, Calcium Level 8.3L, Total Bilirubin 0.5, Aspartate Amino Transf (AST /SGOT) 32, Alanine Aminotransferase (ALT/SGPT) 20, Alkaline Phosphatase 75, Ammonia 39H, Total Protein 8.1, Albumin 3.5, Globulin 4.6, Albumin/Globulin Ratio 0.8L, Triglycerides Level 103, Cholesterol Level 166, LDL Cholesterol 110H , HDL Cholesterol 45, Cholesterol/HDL Ratio 3.7, Thyroid Stimulating Hormone ( TSH) 0.772 Height (Feet): 5 Height (Inches): 10.00 Weight (Pounds): 180 General Appearance: no apparent distress Respiratory/Chest: decreased breath sounds Abdomen: soft Objective no change SHAMAR NORMAN Aug 07, 2017 13:13
[2017-08-07 16:00] VITALS: BP 121/76
--- NOTE | 2017-08-07 16:03 | General Progress Note ---
Assessment/Plan Assessment/Plan Assessment (1) Encounter for PEG (percutaneous endoscopic gastrostomy) (2) Dysphagia (3) Generalized weakness Plan fu MRI r/o CVA ST evaluation reviewed >> maintain NPO, video swallow for wednesday will consider PEG pending swallow study TFs PPI OT evaluation fu labs fu neuro recs Subjective Allergies: Coded Allergies: No Known Allergies (Unverified , 08/05/17) Subjective Feels OK no new complaints NGT repositioned with RN Objective Last 24 Hour Vital Signs Date Time Temp Pulse Resp B/P (MAP) Pulse Ox O2 Delivery O2 Flow Rate FiO2 08/07/17 11:46 98.2 87 20 119/69 95 08/07/17 09:00 98 142/77 08/07/17 08:57 98.6 98 20 142/77 96 08/07/17 07:06 97 20 Room Air 21 08/07/17 04:00 97.0 104 22 158/86 95 08/07/17 00:00 97.9 112 20 140/82 96 08/06/17 22:26 98.9 08/06/17 20:00 101.5 100 22 141/80 98 08/06/17 19:24 98 18 Room Air 21 08/06/17 16:04 98.7 101 21 130/83 95 Room Air Intake and Output 08/06/17 08/07/17 19:00 07:00 Intake Total 1665 ml Balance 1665 ml Free Water 330 ml IV Total 825 ml Tube Feeding 510 ml # Voids 6 3 # Bowel Movements 1 Laboratory Tests 08/06/17 18:04: Urine Color Pale yellow, Urine Appearance Clear, Urine pH 5, Urine Specific [place] 1.015, Urine Protein 3+H, Urine Glucose (UA) Negative, Urine Ketones 3+H , Urine Occult Blood 3+H, Urine Nitrite Negative, Urine Bilirubin Negative, Urine Urobilinogen Normal, Urine Leukocyte Esterase Negative, Urine RBC 0-2H, Urine WBC 0-2, Urine Squamous Epithelial Cells None, Urine Bacteria None 08/06/17 20:32: Urine Random Sodium 159H 08/07/17 03:00: Urine Eosinophils None seen 08/07/17 05:20: White Blood Count 9.6, Red Blood Count 5.27, Hemoglobin 16.1, Hematocrit 46.9, Mean Corpuscular Volume 89, Mean Corpuscular Hemoglobin 30.6, Mean Corpuscular Hemoglobin Concent 34.4, Red Cell Distribution Width 11.8, Platelet Count 205, Mean Platelet Volume 6.8, Neutrophils (%) (Auto) 75.5H, Lymphocytes (%) (Auto) 14.7L, Monocytes (%) (Auto) 9.5, Eosinophils (%) (Auto) 0.0, Basophils (%) (Auto ) 0.3, Prothrombin Time 11.7H, Prothromb Time International Ratio 1.1, Activated Partial Thromboplast Time 34H, Sodium Level 134L, Potassium Level 3.6 , Chloride Level 101, Carbon Dioxide Level 23, Anion Gap 10, Blood Urea Nitrogen 19H, Creatinine 1.6H, Estimat Glomerular Filtration Rate , Glucose Level 123H, Calcium Level 8.3L, Total Bilirubin 0.5, Aspartate Amino Transf (AST /SGOT) 32, Alanine Aminotransferase (ALT/SGPT) 20, Alkaline Phosphatase 75, Ammonia 39H, Total Protein 8.1, Albumin 3.5, Globulin 4.6, Albumin/Globulin Ratio 0.8L, Triglycerides Level 103, Cholesterol Level 166, LDL Cholesterol 110H , HDL Cholesterol 45, Cholesterol/HDL Ratio 3.7, Thyroid Stimulating Hormone ( TSH) 0.772 Height (Feet): 5 Height (Inches): 10.00 Weight (Pounds): 180 Objective WDWN NCAT supple CTA RRR soft NT ND no edema KANA TELLES Aug 07, 2017 16:03
[2017-08-07] MEDS ORDERED: NS 500ML ONE (18:30)
[2017-08-07] MEDS ORDERED: D5 1/2NS 1000ml IV ONE (18:30)
[2017-08-07 20:00] VITALS: BP 136/79
--- NOTE | 2017-08-07 23:12 | Consultation ---
History of Present Illness General Date patient seen: Aug 05, 2017 Chief Complaint: General Complaint Referring physician: JEFERSON ORTEGA Reason for Consultation: DYSPHAGIA/PEG Present Illness HPI 75 year old male with hx of dementia, presents from nursing facility with complaints of weakness, left-sided weakness. the pt was lethargic difficult to be engaged and answer the questions. the pt was falling asleep during the eval and was not able to provide hx Allergies: Coded Allergies: No Known Allergies (Unverified , 08/05/17) Medication History Scheduled Amlodipine Besylate (Norvasc), 10 MG ORAL DAILY, (Reported) Clonidine Hcl* (Catapres*), 0.1 MG ORAL DAILY, (Reported) Memantine Hcl* (Namenda*), 10 MG ORAL TWICE A DAY, (Reported) Thiamine Hcl (Vitamin B1*), 100 MG ORAL DAILY, (Reported) Vitamin D (Vitamin D3), 1,000 UNITS ORAL DAILY, (Reported) Scheduled PRN Magnesium Hydroxide* (Milk Of Magnesia*), 30 ML ORAL Q6HR PRN for Constipation, (Reported) Miscellaneous Medications Multivits,Ca,Minerals/Iron/FA (Thera M Plus Tablet), 1 EACH PO, (Reported) Patient History History Provided By: Patient, Medical Record, PMD Healthcare decision maker Resuscitation status Full Code Advanced Directive on File Yes Past Medical/Surgical History Past Medical/Surgical History: (1) Generalized weakness (2) Dysphagia (3) Encounter for PEG (percutaneous endoscopic gastrostomy) (4) History of dementia (5) CVA (cerebral vascular accident) (6) Fever (7) UTI (urinary tract infection) (8) Acute renal failure (9) Dehydration Review of Systems Psychiatric: Reports: prior hx, anxiety, depressed feelings, emotional problems Physical Exam General Appearance: no apparent distress, lethargic, confused Neurologic: disoriented, depressed affect Last 24 Hour Vital Signs Date Time Temp Pulse Resp B/P (MAP) Pulse Ox O2 Delivery O2 Flow Rate FiO2 08/07/17 20:00 100.2 116 22 136/79 95 Room Air 08/07/17 19:30 99 20 Room Air 21 08/07/17 16:00 97.7 100 20 121/76 95 08/07/17 11:46 98.2 87 20 119/69 95 08/07/17 09:00 98 142/77 08/07/17 08:57 98.6 98 20 142/77 96 08/07/17 07:06 97 20 Room Air 21 08/07/17 04:00 97.0 104 22 158/86 95 08/07/17 00:00 97.9 112 20 140/82 96 Intake and Output 08/06/17 08/07/17 19:00 07:00 Intake Total 1725 ml Balance 1725 ml Free Water 330 ml IV Total 825 ml Tube Feeding 570 ml # Voids 6 3 # Bowel Movements 1 Laboratory Tests Test 08/07/17 03:00 08/07/17 05:20 Urine Eosinophils None seen White Blood Count 9.6 K/UL (4.8-10.8) Red Blood Count 5.27 M/UL (4.70-6.10) Hemoglobin 16.1 G/DL (14.2-18.0) Hematocrit 46.9 % (42.0-52.0) Mean Corpuscular Volume 89 FL (80-99) Mean Corpuscular Hemoglobin 30.6 PG (27.0-31.0) Mean Corpuscular Hemoglobin Concent 34.4 G/DL (32.0-36.0) Red Cell Distribution Width 11.8 % (11.6-14.8) Platelet Count 205 K/UL (150-450) Mean Platelet Volume 6.8 FL (6.5-10.1) Neutrophils (%) (Auto) 75.5 % (45.0-75.0) H Lymphocytes (%) (Auto) 14.7 % (20.0-45.0) L Monocytes (%) (Auto) 9.5 % (1.0-10.0) Eosinophils (%) (Auto) 0.0 % (0.0-3.0) Basophils (%) (Auto) 0.3 % (0.0-2.0) Prothrombin Time 11.7 SEC (9.30-11.50) H Prothromb Time International Ratio 1.1 (0.9-1.1) Activated Partial Thromboplast Time 34 SEC (23-33) H Sodium Level 134 MMOL/L (136-145) L Potassium Level 3.6 MMOL/L (3.5-5.1) Chloride Level 101 MMOL/L (98-107) Carbon Dioxide Level 23 MMOL/L (21-32) Anion Gap 10 mmol/L (5-15) Blood Urea Nitrogen 19 mg/dL (7-18) H Creatinine 1.6 MG/DL (0.55-1.30) H Estimat Glomerular Filtration Rate mL/min (>60) Glucose Level 123 MG/DL (74-106) H Calcium Level 8.3 MG/DL (8.5-10.1) L Total Bilirubin 0.5 MG/DL (0.2-1.0) Aspartate Amino Transf (AST/SGOT) 32 U/L (15-37) Alanine Aminotransferase (ALT/SGPT) 20 U/L (12-78) Alkaline Phosphatase 75 U/L (46-116) Ammonia 39 umol/L (11-32) H Total Protein 8.1 G/DL (6.4-8.2) Albumin 3.5 G/DL (3.4-5.0) Globulin 4.6 g/dL Albumin/Globulin Ratio 0.8 (1.0-2.7) L Triglycerides Level 103 MG/DL (30-150) Cholesterol Level 166 MG/DL (< 200) LDL Cholesterol 110 mg/dL (<100) H HDL Cholesterol 45 MG/DL (40-60) Cholesterol/HDL Ratio 3.7 (3.3-4.4) Thyroid Stimulating Hormone (TSH) 0.772 uiU/mL (0.358-3.740) Height (Feet): 5 Height (Inches): 10.00 Weight (Pounds): 180 Medications Current Medications Medications (Trade) Dose Ordered Sig/Jay Route PRN Reason Start Time Stop Time Status Last Admin Dose Admin Acetaminophen (Tylenol) 650 mg Q4H PRN ORAL fever (temp>100.5F) 08/06/17 07:00 09/05/17 06:59 08/06/17 21:27 Albuterol/ Ipratropium (Albuterol/ Ipratropium) 3 ml Q4H PRN HHN Shortness of Breath 08/06/17 07:00 08/11/17 06:59 Amlodipine Besylate (Norvasc) 2.5 mg DAILY ORAL 08/07/17 09:00 09/06/17 08:59 08/07/17 09:00 Aspirin (ASA) 81 mg DAILY GT 08/07/17 09:00 09/06/17 08:59 08/07/17 09:00 Cefepime HCl 2 gm/ Dextrose 55 ml @ 110 mls/hr Q24H IVPB 08/08/17 08:00 08/15/17 07:59 Dextrose (Dextrose 50%) STAT PRN IV Hypoglycemia 08/06/17 07:00 09/05/17 06:59 Dextrose/Sodium Chloride 1,000 ml @ 50 mls/hr Q20H IV 08/07/17 08:15 09/06/17 08:14 08/07/17 09:01 Heparin Sodium (Porcine) (Heparin 5000 units/ml) 5,000 units EVERY 12 HOURS SUBQ 08/06/17 09:00 09/05/17 08:59 08/07/17 20:32 Lorazepam (Ativan 2mg/ml 1ml) 0.5 mg Q4H PRN IV For Anxiety 08/06/17 07:00 08/13/17 06:59 Morphine Sulfate (Morphine Sulfate) 1 mg Q4H PRN IVP For Pain 7-10 08/06/17 07:00 08/13/17 06:59 Nitroglycerin (Ntg) 0.4 mg Q5M X 3 DOSES PRN SL Prn Chest Pain 08/06/17 07:00 09/05/17 06:59 Ondansetron HCl (Zofran) 4 mg Q6H PRN IVP Nausea & Vomiting 08/06/17 07:00 09/05/17 06:59 Pantoprazole (Protonix) 40 mg DAILY IVP 08/07/17 09:00 09/06/17 08:59 08/07/17 09:00 Polyethylene Glycol (Miralax) 17 gm HSPRN PRN ORAL Constipation 08/06/17 07:00 09/05/17 06:59 Promethazine HCl/ Codeine (Phenergan with Codeine) 5 ml Q4H PRN ORAL For Cough 08/06/17 07:00 09/05/17 06:59 08/06/17 09:59 Temazepam (Restoril) 15 mg HSPRN PRN ORAL Insomnia 08/06/17 07:00 08/13/17 06:59 Assessment/Plan Status: not improved, unchanged Assessment/Plan encephalopathy ct of brain was normal mri without contrast risperdal 1mg qhs Melonie Oconnell M.D. Aug 07, 2017 23:12
--- NOTE | 2017-08-07 23:13 | General Progress Note ---
Assessment/Plan Status: stable Subjective Date patient seen: Aug 06, 2017 Neurologic/Psychiatric: Reports: anxiety, depressed, emotional problems Allergies: Coded Allergies: No Known Allergies (Unverified , 08/05/17) Objective Last 24 Hour Vital Signs Date Time Temp Pulse Resp B/P (MAP) Pulse Ox O2 Delivery O2 Flow Rate FiO2 08/07/17 20:00 100.2 116 22 136/79 95 Room Air 08/07/17 19:30 99 20 Room Air 21 08/07/17 16:00 97.7 100 20 121/76 95 08/07/17 11:46 98.2 87 20 119/69 95 08/07/17 09:00 98 142/77 08/07/17 08:57 98.6 98 20 142/77 96 08/07/17 07:06 97 20 Room Air 21 08/07/17 04:00 97.0 104 22 158/86 95 08/07/17 00:00 97.9 112 20 140/82 96 Intake and Output 08/06/17 08/07/17 19:00 07:00 Intake Total 1725 ml Balance 1725 ml Free Water 330 ml IV Total 825 ml Tube Feeding 570 ml # Voids 6 3 # Bowel Movements 1 Laboratory Tests 08/07/17 03:00: Urine Eosinophils None seen 08/07/17 05:20: White Blood Count 9.6, Red Blood Count 5.27, Hemoglobin 16.1, Hematocrit 46.9, Mean Corpuscular Volume 89, Mean Corpuscular Hemoglobin 30.6, Mean Corpuscular Hemoglobin Concent 34.4, Red Cell Distribution Width 11.8, Platelet Count 205, Mean Platelet Volume 6.8, Neutrophils (%) (Auto) 75.5H, Lymphocytes (%) (Auto) 14.7L, Monocytes (%) (Auto) 9.5, Eosinophils (%) (Auto) 0.0, Basophils (%) (Auto ) 0.3, Prothrombin Time 11.7H, Prothromb Time International Ratio 1.1, Activated Partial Thromboplast Time 34H, Sodium Level 134L, Potassium Level 3.6 , Chloride Level 101, Carbon Dioxide Level 23, Anion Gap 10, Blood Urea Nitrogen 19H, Creatinine 1.6H, Estimat Glomerular Filtration Rate , Glucose Level 123H, Calcium Level 8.3L, Total Bilirubin 0.5, Aspartate Amino Transf (AST /SGOT) 32, Alanine Aminotransferase (ALT/SGPT) 20, Alkaline Phosphatase 75, Ammonia 39H, Total Protein 8.1, Albumin 3.5, Globulin 4.6, Albumin/Globulin Ratio 0.8L, Triglycerides Level 103, Cholesterol Level 166, LDL Cholesterol 110H , HDL Cholesterol 45, Cholesterol/HDL Ratio 3.7, Thyroid Stimulating Hormone ( TSH) 0.772 Height (Feet): 5 Height (Inches): 10.00 Weight (Pounds): 180 General Appearance: no apparent distress, confused Melonie Oconnell M.D. Aug 07, 2017 23:13
[2017-08-08] VITALS (7 sets, daily range): BP systolic 125–159; BP diastolic 4–98
--- NOTE | 2017-08-08 03:45 | Consultation ---
DATE OF CONSULTATION: 08/07/2017 NOTE: POOR AUDIO HISTORY OF PRESENT ILLNESS: This is a 76-year-old male patient with generalized weakness, hypertension, and altered mental status. He came in confused with altered mental status status post CVA. He had altered mental status, confusion, disorganized thought process, and extreme mood lability. His cognition has declined below baseline and that is why his attending physician has requested daily psychiatric consultation. He does have significant difficulties answering questions, alert and oriented x2, and does exhibit mood lability at bedside on interview today. PAST MEDICAL HISTORY: COPD, hypertension, altered mental status, and status post CVA. SOCIAL HISTORY: He lives at [facility]. Financially supported by [facility] and [employer]. SUBSTANCE ABUSE HISTORY: Denies drug and alcohol use. PSYCHIATRIC HISTORY: Paranoid schizophrenia, rule out dementia with psychosis, rule out depression with psychotic features. Denies any previous psychiatric admissions. MENTAL STATUS EXAMINATION: The patient is a 76-year-old male. Appearance disheveled. Attitude irritable and agitated. Affect guarded and restricted. Intellect poor. Mood depressed and anxious. Motor activity, psychomotor retardation. Mood is depressed. Affect guarded and restricted. Thought process, disorganized thought process. The patient does have some and disorganized thought process. His insight and judgment is poor. DIAGNOSIS: Major depression with psychotic features, rule out pseudodementia, rule out depression with paranoid schizophrenia. PLAN: The plan for this patient is to treat him with Namenda 10 mg twice a day to prevent any further decline in his cognition and Ativan 0.5 mg IV q.4 hours p.r.n. anxiety and agitation and he will continue to be followed throughout the hospital course. His attending physician has requested daily psychiatric consultation to prevent any further decline in his cognition, reduce the agitation, and mood lability. He will continue to be followed by Psychiatry throughout his hospital course. Chart reviewed and discussed with staff at bedside. The patient is seen and assessed at bedside. Chart reviewed and discussed with staff. Chapincito Mendez M.D. DR: GATO JOB#: [id number] CC:
[2017-08-08] MEDS: D5NS 1,000 ML IV SCH (04:46)
--- NOTE | 2017-08-08 07:54 | General Progress Note ---
Assessment/Plan Problem List: (1) UTI (urinary tract infection) ICD Codes: N39.0 - Urinary tract infection, site not specified SNOMED: 13303457 (2) Generalized weakness ICD Codes: R53.1 - Weakness SNOMED: 79886754 (3) Dysphagia ICD Codes: R13.10 - Dysphagia, unspecified SNOMED: 94237478, 432657340 (4) History of dementia ICD Codes: Z86.59 - Personal history of other mental and behavioral disorders SNOMED: 383805697 (5) CVA (cerebral vascular accident) ICD Codes: I63.9 - Cerebral infarction, unspecified SNOMED: 804700814 (6) Fever ICD Codes: R50.9 - Fever, unspecified SNOMED: 152574261 Status: unchanged Assessment/Plan ot pt diet abx cbc bmp am Subjective Allergies: Coded Allergies: No Known Allergies (Unverified , 08/05/17) All Systems: reviewed and negative except above Subjective ng in place calm Objective Last 24 Hour Vital Signs Date Time Temp Pulse Resp B/P (MAP) Pulse Ox O2 Delivery O2 Flow Rate FiO2 08/08/17 04:00 99.2 100 20 153/85 93 Room Air 08/08/17 00:00 99.5 123 20 141/83 95 Room Air 08/07/17 20:00 100.2 116 22 136/79 95 Room Air 08/07/17 19:30 99 20 Room Air 21 08/07/17 16:00 97.7 100 20 121/76 95 08/07/17 11:46 98.2 87 20 119/69 95 08/07/17 09:00 98 142/77 08/07/17 08:57 98.6 98 20 142/77 96 Intake and Output 08/07/17 08/08/17 19:00 07:00 Intake Total 630 ml 1370 ml Output Total 300 ml Balance 330 ml 1370 ml Intake Oral 0 ml Free Water 100 ml 100 ml IV Total 50 ml 550 ml Tube Feeding 480 ml 720 ml Output Urine Total 300 ml # Bowel Movements 2 4 Laboratory Tests 08/08/17 02:06: Urine Eosinophils None seen Height (Feet): 5 Height (Inches): 10.00 Weight (Pounds): 180 General Appearance: lethargic EENT: normal ENT inspection Neck: normal alignment Cardiovascular: normal peripheral pulses, normal rate, regular rhythm Respiratory/Chest: chest wall non-tender, lungs clear, normal breath sounds Abdomen: normal bowel sounds, non tender, soft Extremities: normal inspection Edema: no edema noted Arm (L), no edema noted Arm (R), no edema noted Leg (L), no edema noted Leg (R), no edema noted Pedal (L), no edema noted Pedal (R), no edema noted Generalized Neurologic: motor weakness Skin: normal pigmentation, warm/dry JEFERSON ORTEGA Aug 08, 2017 07:54
[2017-08-08] MEDS: Cefepime HCl 2 GM in D5W 55 ML IVPB SCH (09:39)
[2017-08-08] MEDS: Pantoprazole Inj IVP SCH (09:39)
[2017-08-08] MEDS: Aspirin Baby 81mg GT SCH (09:39)
[2017-08-08] MEDS: Heparin 5000 units/ml inj SUBQ SCH ×2 (09:57→20:27)
[2017-08-08 10:44] LABS: BASOPHILS % (AUTO) 0.4 % (0.0-2.0); EOSINOPHILS % (AUTO) 0.1 % (0.0-3.0); HEMATOCRIT 43.3 % (42.0-52.0); HEMOGLOBIN 15.3 G/DL (14.2-18.0); LYMPHOCYTES % (AUTO) 21.1 % (20.0-45.0); MEAN CORPUSCULAR VOLUME 88 FL (80-99); MONOCYTES % (AUTO) 6.9 % (1.0-10.0); NEUTROPHILS % (AUTO) 71.6 % (45.0-75.0); PLATELET COUNT 185 K/UL (150-450); RED BLOOD COUNT 4.94 M/UL (4.70-6.10); RED CELL DISTRIBUTION WIDTH 11.3 % (11.6-14.8); WHITE BLOOD COUNT 8.2 K/UL (4.8-10.8)
--- NOTE | 2017-08-08 11:09 | Pulmonology Progress Note ---
Assessment/Plan Problems: (1) UTI (urinary tract infection) (2) Fever (3) CVA (cerebral vascular accident) (4) Generalized weakness (5) Dysphagia (6) History of dementia Assessment/Plan improivng continue feeding check electroltyes check cultures continue abx tolerating diet dvt prophylaxis. Subjective ROS Limited/Unobtainable: No Constitutional: Reports: no symptoms HEENT: Repors: no symptoms Cardiovascular: Reports: no symptoms Allergies: Coded Allergies: No Known Allergies (Unverified , 08/05/17) Objective Last 24 Hour Vital Signs Date Time Temp Pulse Resp B/P (MAP) Pulse Ox O2 Delivery O2 Flow Rate FiO2 08/08/17 09:39 101 159/98 08/08/17 09:04 97.5 101 21 159/98 95 08/08/17 08:00 97.5 101 21 159/98 95 08/08/17 04:00 99.2 100 20 153/85 93 Room Air 08/08/17 00:00 99.5 123 20 141/83 95 Room Air 08/07/17 20:00 100.2 116 22 136/79 95 Room Air 08/07/17 19:30 99 20 Room Air 21 08/07/17 16:00 97.7 100 20 121/76 95 08/07/17 11:46 98.2 87 20 119/69 95 Intake and Output 08/07/17 08/08/17 19:00 07:00 Intake Total 630 ml 1370 ml Output Total 300 ml Balance 330 ml 1370 ml Intake Oral 0 ml Free Water 100 ml 100 ml IV Total 50 ml 550 ml Tube Feeding 480 ml 720 ml Output Urine Total 300 ml # Bowel Movements 2 4 General Appearance: WD/WN HEENT: normocephalic, atraumatic Respiratory/Chest: chest wall non-tender, lungs clear Cardiovascular: normal peripheral pulses, normal rate Abdomen: normal bowel sounds, no organomegaly Genitourinary: normal external genitalia Skin: no rash, no ulcers Neurologic/Psychiatric: woods boss II-XII grossly normal Musculoskeletal: normal muscle bulk Microbiology Date/Time Source Procedure Growth Status 08/05/17 22:06 Blood Blood Culture - Preliminary NO GROWTH AFTER 48 HOURS Resulted 08/05/17 21:40 Blood Blood Culture - Preliminary NO GROWTH AFTER 48 HOURS Resulted 08/06/17 00:55 Nasal Nares MRSA Culture - Final NO METHICILLIN RESISTANT STAPH AUREUS... Complete 08/06/17 00:55 Rectum VRE Culture - Final NO VANCOMYCIN RESISTANT ENTEROCOCCUS ... Complete Laboratory Tests 08/08/17 02:06: Urine Eosinophils None seen 08/08/17 10:08: White Blood Count 8.2, Red Blood Count 4.94, Hemoglobin 15.3, Hematocrit 43.3, Mean Corpuscular Volume 88, Mean Corpuscular Hemoglobin 31.0, Mean Corpuscular Hemoglobin Concent 35.4, Red Cell Distribution Width 11.3L, Platelet Count 185, Mean Platelet Volume 6.7, Neutrophils (%) (Auto) 71.6, Lymphocytes (%) (Auto) 21.1, Monocytes (%) (Auto) 6.9, Eosinophils (%) (Auto) 0.1, Basophils (%) (Auto ) 0.4, Sodium Level [Pending], Potassium Level [Pending], Chloride Level [ Pending], Carbon Dioxide Level [Pending], Blood Urea Nitrogen [Pending], Creatinine [Pending], Estimat Glomerular Filtration Rate [Pending], Glucose Level [Pending], Calcium Level [Pending] Current Medications Medications (Trade) Dose Ordered Sig/Jay Route PRN Reason Start Time Stop Time Status Last Admin Dose Admin Acetaminophen (Tylenol) 650 mg Q4H PRN ORAL fever (temp>100.5F) 08/06/17 07:00 09/05/17 06:59 08/06/17 21:27 Albuterol/ Ipratropium (Albuterol/ Ipratropium) 3 ml Q4H PRN HHN Shortness of Breath 08/06/17 07:00 08/11/17 06:59 Amlodipine Besylate (Norvasc) 2.5 mg DAILY ORAL 08/07/17 09:00 09/06/17 08:59 08/08/17 09:39 Aspirin (ASA) 81 mg DAILY GT 08/07/17 09:00 09/06/17 08:59 08/08/17 09:39 Cefepime HCl 2 gm/ Dextrose 55 ml @ 110 mls/hr Q24H IVPB 08/08/17 08:00 08/15/17 07:59 08/08/17 09:39 Dextrose (Dextrose 50%) STAT PRN IV Hypoglycemia 08/06/17 07:00 09/05/17 06:59 Dextrose/Sodium Chloride 1,000 ml @ 50 mls/hr Q20H IV 08/07/17 08:15 09/06/17 08:14 08/08/17 04:46 Heparin Sodium (Porcine) (Heparin 5000 units/ml) 5,000 units EVERY 12 HOURS SUBQ 08/06/17 09:00 09/05/17 08:59 08/08/17 09:57 Lorazepam (Ativan 2mg/ml 1ml) 0.5 mg Q4H PRN IV For Anxiety 08/06/17 07:00 08/13/17 06:59 Morphine Sulfate (Morphine Sulfate) 1 mg Q4H PRN IVP For Pain 7-10 08/06/17 07:00 08/13/17 06:59 Nitroglycerin (Ntg) 0.4 mg Q5M X 3 DOSES PRN SL Prn Chest Pain 08/06/17 07:00 09/05/17 06:59 Ondansetron HCl (Zofran) 4 mg Q6H PRN IVP Nausea & Vomiting 08/06/17 07:00 09/05/17 06:59 Pantoprazole (Protonix) 40 mg DAILY IVP 08/07/17 09:00 09/06/17 08:59 08/08/17 09:39 Polyethylene Glycol (Miralax) 17 gm HSPRN PRN ORAL Constipation 08/06/17 07:00 09/05/17 06:59 Promethazine HCl/ Codeine (Phenergan with Codeine) 5 ml Q4H PRN ORAL For Cough 08/06/17 07:00 09/05/17 06:59 08/06/17 09:59 Risperidone (RisperDAL) 1 mg BEDTIME ORAL 08/08/17 21:00 09/07/17 20:59 Temazepam (Restoril) 15 mg HSPRN PRN ORAL Insomnia 08/06/17 07:00 08/13/17 06:59 CARLA PARDO Aug 08, 2017 11:09
--- NOTE | 2017-08-08 12:39 | Nephrology Progress Note ---
Assessment/Plan Problem List: (1) Acute renal failure (2) Dehydration Assessment Renal failure- Acute ? underlying Chronic: Cr down 1.6 h/o HTN (1) CVA (cerebral vascular accident) (2) Generalized weakness (3) Dysphagia (4) History of dementia Plan Hydrate- monitor renal parameters UA and Urine studies Adjust BP meds per consultants Subjective ROS Limited/Unobtainable: No Constitutional: Reports: malaise Objective Objective Last 24 Hour Vital Signs Date Time Temp Pulse Resp B/P (MAP) Pulse Ox O2 Delivery O2 Flow Rate FiO2 08/08/17 11:41 97.7 91 21 125/83 95 08/08/17 09:39 101 159/98 08/08/17 09:04 97.5 101 21 159/98 95 08/08/17 08:00 97.5 101 21 159/98 95 08/08/17 04:00 99.2 100 20 153/85 93 Room Air 08/08/17 00:00 99.5 123 20 141/83 95 Room Air 08/07/17 20:00 100.2 116 22 136/79 95 Room Air 08/07/17 19:30 99 20 Room Air 21 08/07/17 16:00 97.7 100 20 121/76 95 Intake and Output 08/07/17 08/08/17 19:00 07:00 Intake Total 630 ml 1370 ml Output Total 300 ml Balance 330 ml 1370 ml Intake Oral 0 ml Free Water 100 ml 100 ml IV Total 50 ml 550 ml Tube Feeding 480 ml 720 ml Output Urine Total 300 ml # Bowel Movements 2 4 Laboratory Tests 08/08/17 02:06: Urine Eosinophils None seen 08/08/17 10:08: White Blood Count 8.2, Red Blood Count 4.94, Hemoglobin 15.3, Hematocrit 43.3, Mean Corpuscular Volume 88, Mean Corpuscular Hemoglobin 31.0, Mean Corpuscular Hemoglobin Concent 35.4, Red Cell Distribution Width 11.3L, Platelet Count 185, Mean Platelet Volume 6.7, Neutrophils (%) (Auto) 71.6, Lymphocytes (%) (Auto) 21.1, Monocytes (%) (Auto) 6.9, Eosinophils (%) (Auto) 0.1, Basophils (%) (Auto ) 0.4, Sodium Level [Pending], Potassium Level [Pending], Chloride Level [ Pending], Carbon Dioxide Level [Pending], Blood Urea Nitrogen [Pending], Creatinine [Pending], Estimat Glomerular Filtration Rate [Pending], Glucose Level [Pending], Calcium Level [Pending] Height (Feet): 5 Height (Inches): 10.00 Weight (Pounds): 180 General Appearance: no apparent distress Objective no change SHAMAR NORMAN Aug 08, 2017 12:39
[2017-08-08 13:03] LABS: ANION GAP 14 mmol/L (5-15); BLOOD UREA NITROGEN 20 mg/dL (7-18); CALCIUM 8.3 MG/DL (8.5-10.1); CARBON DIOXIDE 18 MMOL/L (21-32); CHLORIDE 104 MMOL/L (98-107); CREATININE 1.4 MG/DL (0.55-1.30); POTASSIUM 3.8 MMOL/L (3.5-5.1); SODIUM 136 MMOL/L (136-145)
[2017-08-08] MEDS ORDERED: Tubing IV Secondary IV ONE (14:33)
--- NOTE | 2017-08-08 16:45 | Consultation ---
DATE OF CONSULTATION: 08/08/2017 INFECTIOUS DISEASE CONSULTATION CONSULTING PHYSICIAN: Rajesh Chacon M.D. PRIMARY ATTENDING PHYSICIAN: Iglesia Reed D.O. REASON FOR CONSULT: Fever. HISTORY OF PRESENT ILLNESS: The patient is a 76-year-old male admitted on 08/05/2017 from a nursing facility because of weakness in the left side of the body with impression of acute CVA. The patient had a fever of 100.9 in the ER. He had fever up to 101.5 yesterday. He has acute renal failure. PAST MEDICAL HISTORY: Significant for diabetes mellitus, hypertension, dementia, and COPD. ALLERGIES: No known drug allergy. MEDICATIONS: Risperdal, cefepime, Protonix, amlodipine, aspirin, heparin, albuterol, ipratropium inhaler, morphine, Tylenol, MiraLAX, Zofran, lorazepam, and temazepam. SOCIAL HISTORY: [facility] resident. No history of alcohol, drug abuse, or smoking. REVIEW OF SYSTEMS: The patient denies any weakness and any other complaint. PHYSICAL EXAMINATION: VITAL SIGNS: Temperature 97.5, pulse 101, and blood pressure 159/98. HEAD AND NECK: He has some erythema in the right eye. Has NG tube in place. HEART: Tachycardic. LUNGS: Clear. ABDOMEN: Soft and nontender. EXTREMITIES: He has no edema. NEUROLOGIC: Awake, alert, verbal, and moves all extremities. LABORATORY DATA: Sodium 134, potassium 3.6, chloride 101, bicarbonate 23, BUN 19, creatinine 1.6, and glucose 123. WBC 8.2, hemoglobin 15.3, hematocrit 43.3, and platelets are 185. CULTURES: Blood culture x2 are so far negative. MRSA screen negative. VRE screening test is negative. IMAGING: MRI of the brain showed no evidence of acute infarct and showed atrophy. Chest x-ray showed cardiomegaly and pulmonary vascular congestion. IMPRESSION: Fever, source of infection is not quite clear right now. The patient's urinalysis is negative. Culture so far is negative. The patient seems to have acute renal failure and weakness in the left side of the body. He has diabetes, hypertension, and dementia. RECOMMENDATION: We will continue with cefepime. We will obtain an abdominal ultrasound. At the end of my exam, I thank Dr. Iglesia Reed for involving me in the care of this patient. Rajesh Chacon M.D. DR: SCOTTY JOB#: [id number] CC:
--- NOTE | 2017-08-08 17:15 | Progress Note ---
DATE: 08/08/2017 HISTORY OF PRESENT ILLNESS: The patient is a 76-year-old patient. He was seen and assessed at bedside today. He has COPD, hypertension, and altered mental status. Cognition has declined below baseline secondary to the progression of his mental illness. That is why, his attending physician has requested daily psychiatric consultation for this patient. MENTAL STATUS EXAMINATION: This is a 76-year-old male with psychomotor retardation. Mood is depressed. Affect is guarded and restricted. Thought process, disorganized and illogical. Denies any current suicidal or homicidal thoughts. Insight and judgment are poor. DIAGNOSIS: Paranoid schizophrenia, rule out dementia with psychosis. PLAN: Treat the patient with Namenda 10 mg twice a day to prevent any further decline in his cognition and continue to be followed by Psychiatry throughout his hospital course. Chart reviewed and discussed with staff. Seen and assessed at bedside. Supportive therapy provided. Chapincito Mendez M.D. DR: Saima JOB#: [id number] CC:
--- NOTE | 2017-08-08 18:47 | General Progress Note ---
Assessment/Plan Assessment/Plan Assessment (1) Encounter for PEG (percutaneous endoscopic gastrostomy) (2) Dysphagia (3) Generalized weakness Plan ST evaluation reviewed >> maintain NPO, video swallow for wednesday Hold TFs overnight PPI OT evaluation fu labs fu neuro recs Subjective Allergies: Coded Allergies: No Known Allergies (Unverified , 08/05/17) Subjective high residuals noted TF held patient more awake walked today Objective Last 24 Hour Vital Signs Date Time Temp Pulse Resp B/P (MAP) Pulse Ox O2 Delivery O2 Flow Rate FiO2 08/08/17 16:00 97.6 90 21 128/4 95 08/08/17 11:41 97.7 91 21 125/83 95 08/08/17 09:39 101 159/98 08/08/17 09:04 97.5 101 21 159/98 95 08/08/17 08:00 97.5 101 21 159/98 95 08/08/17 04:00 99.2 100 20 153/85 93 Room Air 08/08/17 00:00 99.5 123 20 141/83 95 Room Air 08/07/17 20:00 100.2 116 22 136/79 95 Room Air 08/07/17 19:30 99 20 Room Air 21 Intake and Output 08/07/17 08/08/17 18:59 06:59 Intake Total 640 ml 1360 ml Output Total 300 ml Balance 340 ml 1360 ml Intake Oral 0 ml Free Water 100 ml 100 ml IV Total 600 ml Tube Feeding 540 ml 660 ml Output Urine Total 300 ml # Bowel Movements 2 4 Laboratory Tests 08/08/17 02:06: Urine Eosinophils None seen 08/08/17 10:08: White Blood Count 8.2, Red Blood Count 4.94, Hemoglobin 15.3, Hematocrit 43.3, Mean Corpuscular Volume 88, Mean Corpuscular Hemoglobin 31.0, Mean Corpuscular Hemoglobin Concent 35.4, Red Cell Distribution Width 11.3L, Platelet Count 185, Mean Platelet Volume 6.7, Neutrophils (%) (Auto) 71.6, Lymphocytes (%) (Auto) 21.1, Monocytes (%) (Auto) 6.9, Eosinophils (%) (Auto) 0.1, Basophils (%) (Auto ) 0.4, Sodium Level 136, Potassium Level 3.8, Chloride Level 104, Carbon Dioxide Level 18L, Anion Gap 14, Blood Urea Nitrogen 20H, Creatinine 1.4H, Estimat Glomerular Filtration Rate , Glucose Level 177H, Calcium Level 8.3L Height (Feet): 5 Height (Inches): 10.00 Weight (Pounds): 180 Objective WDWN NCAT supple CTA RRR soft NT ND no edema KANA TLELES Aug 08, 2017 18:47
[2017-08-09] VITALS: BP 147/87
[2017-08-09] MEDS: D5NS 1,000 ML IV SCH ×2 (00:59→21:35)
--- NOTE | 2017-08-09 03:30 | Consultation ---
DATE OF CONSULTATION: 08/07/2017 PSYCHOTHERAPY CONSULTATION PROGRESS NOTE TREATING ATTENDING PHYSICIAN: Iglesia Reed D.O. HISTORY OF PRESENT ILLNESS: The patient is a 76-year-old male patient from [facility]. The patient was admitted to the hospital for weakness and confusion and altered mental status. For these reasons, the patient was referred for psychotherapeutic services. The patient's mood has been very irritable, agitated as well as depressed by mood instability and mobility has been recognized. For these reasons, this clinician assessed the patient. The patient is irritable, helpless and agitated, confused, and disorganized. The patient has had poor mood instability and required hospice at this time for stabilization of symptoms. The patient has difficulty regulating his mood and affect. This clinician assessed the patient. MENTAL STATUS EXAMINATION: The patient is alert and oriented to person and place. Mood is irritable. Affect is blunted. Thought process, disorganized. Thought content is confused. The patient has poor attention and concentration. Poor insight, judgment, and impulse control. MEDICAL HISTORY: The patient has a history of COPD, hypertension, affect, . ALLERGIES: The patient has no known drug allergies. SUBSTANCE ABUSE HISTORY: There is no indication of alcohol use, illicit substances, or smoking cigarettes. PSYCHIATRIC HISTORY: The patient has a history of depression and possible schizophrenia. The patient has been treated with psychotropic medications in the past. SOCIAL HISTORY: The patient is a 76-year-old male patient who has been in [facility]. Financially sustained with [facility]. The patient is a single male patient. DIAGNOSIS: Rule out paranoid schizophrenia and rule out major depressive disorder, recurrent severe with psychotic features. IMPRESSION: This clinician assessed the patient. Provided the patient with reality orientation. Provided with supportive psychotherapy. The patient's mental status has improved. Encouraging the patient to participate in treatment. Addressing the patient's mood instability and poor frustration tolerance. Continue with behavioral management. This clinician has reviewed the patient's chart and discussed the treatment with treatment team. Petrona Foote PsyD. : TERESA JOB#: [id number] CC:
[2017-08-09 04:00] VITALS: BP 138/91
--- NOTE | 2017-08-09 07:52 | General Progress Note ---
Assessment/Plan Problem List: (1) UTI (urinary tract infection) ICD Codes: N39.0 - Urinary tract infection, site not specified SNOMED: 88795519 (2) Generalized weakness ICD Codes: R53.1 - Weakness SNOMED: 81975020 (3) Dysphagia ICD Codes: R13.10 - Dysphagia, unspecified SNOMED: 66673268, 594333446 (4) History of dementia ICD Codes: Z86.59 - Personal history of other mental and behavioral disorders SNOMED: 135086805 (5) CVA (cerebral vascular accident) ICD Codes: I63.9 - Cerebral infarction, unspecified SNOMED: 682774266 (6) Fever ICD Codes: R50.9 - Fever, unspecified SNOMED: 524920658 Status: unchanged Assessment/Plan ot pt diet abx cbc bmp am Subjective Constitutional: Reports: weakness Allergies: Coded Allergies: No Known Allergies (Unverified , 08/05/17) All Systems: reviewed and negative except above Subjective ng in place calm Objective Last 24 Hour Vital Signs Date Time Temp Pulse Resp B/P (MAP) Pulse Ox O2 Delivery O2 Flow Rate FiO2 08/09/17 04:00 98.2 83 21 138/91 94 08/09/17 00:00 98.4 74 21 147/87 96 08/08/17 20:00 97.2 82 21 152/84 93 08/08/17 16:00 97.6 90 21 128/4 95 08/08/17 11:41 97.7 91 21 125/83 95 08/08/17 09:39 101 159/98 08/08/17 09:04 97.5 101 21 159/98 95 08/08/17 08:00 97.5 101 21 159/98 95 Intake and Output 08/08/17 08/09/17 19:00 07:00 Intake Total 50 ml 600 ml Output Total 350 ml 800 ml Balance -300 ml -200 ml IV Total 50 ml 600 ml Output Urine Total 350 ml 800 ml # Voids 2 # Bowel Movements 2 Laboratory Tests 08/08/17 10:08: White Blood Count 8.2, Red Blood Count 4.94, Hemoglobin 15.3, Hematocrit 43.3, Mean Corpuscular Volume 88, Mean Corpuscular Hemoglobin 31.0, Mean Corpuscular Hemoglobin Concent 35.4, Red Cell Distribution Width 11.3L, Platelet Count 185, Mean Platelet Volume 6.7, Neutrophils (%) (Auto) 71.6, Lymphocytes (%) (Auto) 21.1, Monocytes (%) (Auto) 6.9, Eosinophils (%) (Auto) 0.1, Basophils (%) (Auto ) 0.4, Sodium Level 136, Potassium Level 3.8, Chloride Level 104, Carbon Dioxide Level 18L, Anion Gap 14, Blood Urea Nitrogen 20H, Creatinine 1.4H, Estimat Glomerular Filtration Rate , Glucose Level 177H, Calcium Level 8.3L Height (Feet): 5 Height (Inches): 10.00 Weight (Pounds): 180 General Appearance: lethargic EENT: normal ENT inspection Neck: normal alignment Cardiovascular: normal peripheral pulses, normal rate, regular rhythm Respiratory/Chest: chest wall non-tender, lungs clear, normal breath sounds Abdomen: normal bowel sounds, non tender, soft Extremities: normal inspection Edema: no edema noted Arm (L), no edema noted Arm (R), no edema noted Leg (L), no edema noted Leg (R), no edema noted Pedal (L), no edema noted Pedal (R), no edema noted Generalized Neurologic: motor weakness Skin: normal pigmentation, warm/dry JEFERSON ORTEGA Aug 09, 2017 07:52
[2017-08-09 08:00] VITALS: BP 129/80
[2017-08-09] MEDS: Pantoprazole Inj IVP SCH (08:33)
[2017-08-09] MEDS: Heparin 5000 units/ml inj SUBQ SCH ×2 (08:33→21:36)
[2017-08-09] MEDS: Aspirin Baby 81mg GT SCH (08:33)
[2017-08-09] MEDS: Cefepime HCl 2 GM in D5W 55 ML IVPB SCH (08:51)
[2017-08-09 08:53] LABS: BASOPHILS % (AUTO) 0.3 % (0.0-2.0); EOSINOPHILS % (AUTO) 0.5 % (0.0-3.0); HEMATOCRIT 42.2 % (42.0-52.0); HEMOGLOBIN 14.8 G/DL (14.2-18.0); MEAN CORPUSCULAR VOLUME 88 FL (80-99); MONOCYTES % (AUTO) 8.3 % (1.0-10.0); NEUTROPHILS % (AUTO) 62.9 % (45.0-75.0); PLATELET COUNT 174 K/UL (150-450); RED BLOOD COUNT 4.78 M/UL (4.70-6.10); RED CELL DISTRIBUTION WIDTH 11.6 % (11.6-14.8); WHITE BLOOD COUNT 6.4 K/UL (4.8-10.8)
[2017-08-09 09:15] LABS: ANION GAP 9 mmol/L (5-15); BLOOD UREA NITROGEN 14 mg/dL (7-18); CALCIUM 8.2 MG/DL (8.5-10.1); CARBON DIOXIDE 24 MMOL/L (21-32); CHLORIDE 106 MMOL/L (98-107); CREATININE 1.2 MG/DL (0.55-1.30); POTASSIUM 3.7 MMOL/L (3.5-5.1); SODIUM 138 MMOL/L (136-145)
--- NOTE | 2017-08-09 09:22 | Diagnostic Imaging Report ---
Indication: Chest pain Technique: XRAY Chest 1v Comparison: 08/05/2017 Findings: Heart is mildly enlarged. Aorta is calcified and tortuous. Previously seen vascular congestion is improved. There is no definite focal consolidation. No large pleural effusion. No pneumothorax. There is no acute osseous abnormality seen. NG tube tip in the proximal stomach. Impression: Previously seen vascular congestion has improved. No focal airspace consolidation. NG tube tip in the proximal stomach.
--- NOTE | 2017-08-09 11:50 | Nephrology Progress Note ---
Assessment/Plan Problem List: (1) Acute renal failure (2) Dehydration Assessment Renal failure- Acute ? underlying Chronic: Cr down , resolved h/o HTN (1) CVA (cerebral vascular accident) (2) Generalized weakness (3) Dysphagia (4) History of dementia Plan Hydrate- monitor renal parameters UA and Urine studies Adjust BP meds per consultants Subjective ROS Limited/Unobtainable: No Constitutional: Reports: malaise Objective Objective Last 24 Hour Vital Signs Date Time Temp Pulse Resp B/P (MAP) Pulse Ox O2 Delivery O2 Flow Rate FiO2 08/09/17 08:00 97.2 81 18 129/80 94 Room Air 08/09/17 04:00 98.2 83 21 138/91 94 08/09/17 00:00 98.4 74 21 147/87 96 08/08/17 20:00 97.2 82 21 152/84 93 08/08/17 16:00 97.6 90 21 128/4 95 Intake and Output 08/08/17 08/09/17 19:00 07:00 Intake Total 50 ml 600 ml Output Total 350 ml 800 ml Balance -300 ml -200 ml IV Total 50 ml 600 ml Output Urine Total 350 ml 800 ml # Voids 2 # Bowel Movements 2 Laboratory Tests 08/09/17 08:25: White Blood Count 6.4, Red Blood Count 4.78, Hemoglobin 14.8, Hematocrit 42.2, Mean Corpuscular Volume 88, Mean Corpuscular Hemoglobin 30.9, Mean Corpuscular Hemoglobin Concent 35.1, Red Cell Distribution Width 11.6, Platelet Count 174, Mean Platelet Volume 6.7, Neutrophils (%) (Auto) 62.9, Lymphocytes (%) (Auto) 28.0, Monocytes (%) (Auto) 8.3, Eosinophils (%) (Auto) 0.5, Basophils (%) (Auto ) 0.3, Sodium Level 138, Potassium Level 3.7, Chloride Level 106, Carbon Dioxide Level 24, Anion Gap 9, Blood Urea Nitrogen 14, Creatinine 1.2, Estimat Glomerular Filtration Rate , Glucose Level 126H, Calcium Level 8.2L Height (Feet): 5 Height (Inches): 10.00 Weight (Pounds): 180 EENT: other - NGT Respiratory/Chest: decreased breath sounds Abdomen: soft Objective no change SHAMAR NORMAN Aug 09, 2017 11:50
[2017-08-09 12:00] VITALS: BP 126/75
--- NOTE | 2017-08-09 12:01 | Pulmonology Progress Note ---
Assessment/Plan Problems: (1) UTI (urinary tract infection) (2) Fever (3) CVA (cerebral vascular accident) (4) Generalized weakness (5) Dysphagia (6) History of dementia Assessment/Plan improving continue feeding check electrolytes check cultures continue abx tolerating diet dvt prophylaxis. Subjective ROS Limited/Unobtainable: No Allergies: Coded Allergies: No Known Allergies (Unverified , 08/05/17) Objective Last 24 Hour Vital Signs Date Time Temp Pulse Resp B/P (MAP) Pulse Ox O2 Delivery O2 Flow Rate FiO2 08/09/17 08:00 97.2 81 18 129/80 94 Room Air 08/09/17 04:00 98.2 83 21 138/91 94 08/09/17 00:00 98.4 74 21 147/87 96 08/08/17 20:00 97.2 82 21 152/84 93 08/08/17 16:00 97.6 90 21 128/4 95 Intake and Output 08/08/17 08/09/17 19:00 07:00 Intake Total 50 ml 600 ml Output Total 350 ml 800 ml Balance -300 ml -200 ml IV Total 50 ml 600 ml Output Urine Total 350 ml 800 ml # Voids 2 # Bowel Movements 2 Objective General Appearance: WD/WN HEENT: normocephalic, atraumatic Respiratory/Chest: chest wall non-tender, lungs clear Cardiovascular: normal peripheral pulses, normal rate Abdomen: normal bowel sounds, soft, non tender Genitourinary: normal external genitalia Extremities: no cyanosis Neurologic/Psychiatric: scalper operator II-XII grossly normal, no motor/sensory deficits Lymphatic: no neck adenopathy Laboratory Tests 08/09/17 08:25: White Blood Count 6.4, Red Blood Count 4.78, Hemoglobin 14.8, Hematocrit 42.2, Mean Corpuscular Volume 88, Mean Corpuscular Hemoglobin 30.9, Mean Corpuscular Hemoglobin Concent 35.1, Red Cell Distribution Width 11.6, Platelet Count 174, Mean Platelet Volume 6.7, Neutrophils (%) (Auto) 62.9, Lymphocytes (%) (Auto) 28.0, Monocytes (%) (Auto) 8.3, Eosinophils (%) (Auto) 0.5, Basophils (%) (Auto ) 0.3, Sodium Level 138, Potassium Level 3.7, Chloride Level 106, Carbon Dioxide Level 24, Anion Gap 9, Blood Urea Nitrogen 14, Creatinine 1.2, Estimat Glomerular Filtration Rate , Glucose Level 126H, Calcium Level 8.2L Current Medications Medications (Trade) Dose Ordered Sig/Jay Route PRN Reason Start Time Stop Time Status Last Admin Dose Admin Acetaminophen (Tylenol) 650 mg Q4H PRN ORAL fever (temp>100.5F) 08/06/17 07:00 09/05/17 06:59 08/06/17 21:27 Albuterol/ Ipratropium (Albuterol/ Ipratropium) 3 ml Q4H PRN HHN Shortness of Breath 08/06/17 07:00 08/11/17 06:59 Amlodipine Besylate (Norvasc) 2.5 mg DAILY ORAL 08/07/17 09:00 09/06/17 08:59 08/08/17 09:39 Aspirin (ASA) 81 mg DAILY GT 08/07/17 09:00 09/06/17 08:59 08/08/17 09:39 Cefepime HCl 2 gm/ Dextrose 55 ml @ 110 mls/hr Q24H IVPB 08/08/17 08:00 08/15/17 07:59 08/09/17 08:51 Dextrose (Dextrose 50%) STAT PRN IV Hypoglycemia 08/06/17 07:00 09/05/17 06:59 Dextrose/Sodium Chloride 1,000 ml @ 50 mls/hr Q20H IV 08/07/17 08:15 09/06/17 08:14 08/09/17 00:59 Heparin Sodium (Porcine) (Heparin 5000 units/ml) 5,000 units EVERY 12 HOURS SUBQ 08/06/17 09:00 09/05/17 08:59 08/08/17 20:27 Lorazepam (Ativan 2mg/ml 1ml) 0.5 mg Q4H PRN IV For Anxiety 08/06/17 07:00 08/13/17 06:59 Morphine Sulfate (Morphine Sulfate) 1 mg Q4H PRN IVP For Pain 7-10 08/06/17 07:00 08/13/17 06:59 Nitroglycerin (Ntg) 0.4 mg Q5M X 3 DOSES PRN SL Prn Chest Pain 08/06/17 07:00 09/05/17 06:59 Ondansetron HCl (Zofran) 4 mg Q6H PRN IVP Nausea & Vomiting 08/06/17 07:00 09/05/17 06:59 Pantoprazole (Protonix) 40 mg DAILY IVP 08/07/17 09:00 09/06/17 08:59 08/08/17 09:39 Polyethylene Glycol (Miralax) 17 gm HSPRN PRN ORAL Constipation 08/06/17 07:00 09/05/17 06:59 Promethazine HCl/ Codeine (Phenergan with Codeine) 5 ml Q4H PRN ORAL For Cough 08/06/17 07:00 09/05/17 06:59 08/06/17 09:59 Risperidone (RisperDAL) 1 mg BEDTIME ORAL 08/08/17 21:00 09/07/17 20:59 08/08/17 20:27 Temazepam (Restoril) 15 mg HSPRN PRN ORAL Insomnia 08/06/17 07:00 08/13/17 06:59 CARLA PARDO Aug 09, 2017 12:01
--- NOTE | 2017-08-09 12:15 | Cardiology Report ---
APPROVED REPORT Technically difficult study due to poor acoustical windows. Normal left ventricular chamber size, systolic function and wall motion to extent visualized. Left ventricular ejection fraction estimated to be 60%. No evidence of left ventricular hypertrophy . No evidence of pericardial effusion. Mild left atrial enlargements. Right cardiac chamber size are within normal limits. Focal aortic valve sclerosis with adequate cusp excursion. Thickened mitral valve leaflets with normal excursion. Heavy Mitral annulus and aortic root calcification. Normal pulmonic valve structure. Normal tricuspid valve structure. IVC dilated at 2.4 cm without physiologic collapse suggestive of increased RA pressure A color flow and spectral Doppler study was performed and revealed: Mild aortic regurgitation. Trace mitral regurgitation . Mitral diastolic velocities suggest reduced left ventricular relaxation c/w mild LV diastolic dysfunction (Grade I ). Trace tricuspid regurgitation. Tricuspid systolic velocities suggests peak right ventricular systolic pressure of 20mmHg. No Pulmonic regurgitation present.
--- NOTE | 2017-08-09 12:36 | GI Progress Note ---
Assessment/Plan Problems: (1) Dehydration ICD Codes: E86.0 - Dehydration SNOMED: 13213502 (2) CVA (cerebral vascular accident) ICD Codes: I63.9 - Cerebral infarction, unspecified SNOMED: 077685580 (3) History of dementia ICD Codes: Z86.59 - Personal history of other mental and behavioral disorders SNOMED: 309763479 (4) Encounter for PEG (percutaneous endoscopic gastrostomy) ICD Codes: Z43.1 - Encounter for attention to gastrostomy SNOMED: 307400532, 329434233 (5) Dysphagia ICD Codes: R13.10 - Dysphagia, unspecified SNOMED: 96134761, 353795220 (6) Generalized weakness ICD Codes: R53.1 - Weakness SNOMED: 22808972 Status: stable Status Narrative Discussed with Dr. Marroquin. Assessment/Plan video swallow today Hold TFs, adv per ST PPI PT/OT evaluation fu labs fu neuro recs The patient was seen and examined at bedside and all new and available data was reviewed in the patients chart. I agree with the above findings, impression and plan. (Patient seen earlier today. Signature stamp does not reflect patient encounter time.). - Brandon Marroquin MD Subjective Gastrointestinal/Abdominal: Reports: no symptoms Objective Last 24 Hour Vital Signs Date Time Temp Pulse Resp B/P (MAP) Pulse Ox O2 Delivery O2 Flow Rate FiO2 08/09/17 08:00 97.2 81 18 129/80 94 Room Air 08/09/17 04:00 98.2 83 21 138/91 94 08/09/17 00:00 98.4 74 21 147/87 96 08/08/17 20:00 97.2 82 21 152/84 93 08/08/17 16:00 97.6 90 21 128/4 95 Intake and Output 08/08/17 08/09/17 19:00 07:00 Intake Total 50 ml 600 ml Output Total 350 ml 800 ml Balance -300 ml -200 ml IV Total 50 ml 600 ml Output Urine Total 350 ml 800 ml # Voids 2 # Bowel Movements 2 Laboratory Tests Test 08/09/17 08:25 White Blood Count 6.4 K/UL (4.8-10.8) Red Blood Count 4.78 M/UL (4.70-6.10) Hemoglobin 14.8 G/DL (14.2-18.0) Hematocrit 42.2 % (42.0-52.0) Mean Corpuscular Volume 88 FL (80-99) Mean Corpuscular Hemoglobin 30.9 PG (27.0-31.0) Mean Corpuscular Hemoglobin Concent 35.1 G/DL (32.0-36.0) Red Cell Distribution Width 11.6 % (11.6-14.8) Platelet Count 174 K/UL (150-450) Mean Platelet Volume 6.7 FL (6.5-10.1) Neutrophils (%) (Auto) 62.9 % (45.0-75.0) Lymphocytes (%) (Auto) 28.0 % (20.0-45.0) Monocytes (%) (Auto) 8.3 % (1.0-10.0) Eosinophils (%) (Auto) 0.5 % (0.0-3.0) Basophils (%) (Auto) 0.3 % (0.0-2.0) Sodium Level 138 MMOL/L (136-145) Potassium Level 3.7 MMOL/L (3.5-5.1) Chloride Level 106 MMOL/L (98-107) Carbon Dioxide Level 24 MMOL/L (21-32) Anion Gap 9 mmol/L (5-15) Blood Urea Nitrogen 14 mg/dL (7-18) Creatinine 1.2 MG/DL (0.55-1.30) Estimat Glomerular Filtration Rate mL/min (>60) Glucose Level 126 MG/DL (74-106) H Calcium Level 8.2 MG/DL (8.5-10.1) L Height (Feet): 5 Height (Inches): 10.00 Weight (Pounds): 180 General Appearance: WD/WN, no apparent distress, alert Cardiovascular: normal rate Respiratory/Chest: normal breath sounds, no respiratory distress Abdominal Exam: normal bowel sounds, non tender, soft Extremities: normal range of motion, non-tender Michelle Knight N.P. Aug 09, 2017 12:36 LISSA MARROQUIN Aug 11, 2017 10:08
[2017-08-09 16:15] VITALS: BP 140/75
--- NOTE | 2017-08-09 17:07 | Infectious Diseases Prog Note ---
Assessment/Plan Assessment/Plan A; Fever resolved Acute renal failure improving DM Dementia P; Continue cefepime will f/u abdominal US Subjective ROS Limited/Unobtainable: No Constitutional: Reports: no symptoms Respiratory: Reports: no symptoms Cardiovascular: Reports: no symptoms Gastrointestinal/Abdominal: Reports: no symptoms Genitourinary: Reports: no symptoms Neurologic: Reports: no symptoms Allergies: Coded Allergies: No Known Allergies (Unverified , 08/05/17) Objective Vital Signs Last 24 Hour Vital Signs Date Time Temp Pulse Resp B/P (MAP) Pulse Ox O2 Delivery O2 Flow Rate FiO2 08/09/17 16:15 98.4 66 21 140/75 97 Room Air 08/09/17 12:00 97.1 78 18 126/75 75 08/09/17 08:00 97.2 81 18 129/80 94 Room Air 08/09/17 04:00 98.2 83 21 138/91 94 08/09/17 00:00 98.4 74 21 147/87 96 08/08/17 20:00 97.2 82 21 152/84 93 Height (Feet): 5 Height (Inches): 10.00 Weight (Pounds): 180 General Appearance: no acute distress HEENT: mucous membranes moist Respiratory/Chest: lungs clear Cardiovascular: normal rate Abdomen: soft, non tender, other - obese Extremities: no edema Neurologic/Psychiatric: alert, responsive Laboratory Tests Test 08/09/17 08:25 White Blood Count 6.4 K/UL (4.8-10.8) Red Blood Count 4.78 M/UL (4.70-6.10) Hemoglobin 14.8 G/DL (14.2-18.0) Hematocrit 42.2 % (42.0-52.0) Mean Corpuscular Volume 88 FL (80-99) Mean Corpuscular Hemoglobin 30.9 PG (27.0-31.0) Mean Corpuscular Hemoglobin Concent 35.1 G/DL (32.0-36.0) Red Cell Distribution Width 11.6 % (11.6-14.8) Platelet Count 174 K/UL (150-450) Mean Platelet Volume 6.7 FL (6.5-10.1) Neutrophils (%) (Auto) 62.9 % (45.0-75.0) Lymphocytes (%) (Auto) 28.0 % (20.0-45.0) Monocytes (%) (Auto) 8.3 % (1.0-10.0) Eosinophils (%) (Auto) 0.5 % (0.0-3.0) Basophils (%) (Auto) 0.3 % (0.0-2.0) Sodium Level 138 MMOL/L (136-145) Potassium Level 3.7 MMOL/L (3.5-5.1) Chloride Level 106 MMOL/L (98-107) Carbon Dioxide Level 24 MMOL/L (21-32) Anion Gap 9 mmol/L (5-15) Blood Urea Nitrogen 14 mg/dL (7-18) Creatinine 1.2 MG/DL (0.55-1.30) Estimat Glomerular Filtration Rate mL/min (>60) Glucose Level 126 MG/DL (74-106) H Calcium Level 8.2 MG/DL (8.5-10.1) L Current Medications Medications (Trade) Dose Ordered Sig/Jay Route PRN Reason Start Time Stop Time Status Last Admin Dose Admin Acetaminophen (Tylenol) 650 mg Q4H PRN ORAL fever (temp>100.5F) 08/06/17 07:00 09/05/17 06:59 08/06/17 21:27 Albuterol/ Ipratropium (Albuterol/ Ipratropium) 3 ml Q4H PRN HHN Shortness of Breath 08/06/17 07:00 08/11/17 06:59 Amlodipine Besylate (Norvasc) 2.5 mg DAILY ORAL 08/07/17 09:00 09/06/17 08:59 08/08/17 09:39 Aspirin (ASA) 81 mg DAILY GT 08/07/17 09:00 09/06/17 08:59 08/08/17 09:39 Cefepime HCl 2 gm/ Dextrose 55 ml @ 110 mls/hr Q24H IVPB 08/08/17 08:00 08/15/17 07:59 08/09/17 08:51 Dextrose (Dextrose 50%) STAT PRN IV Hypoglycemia 08/06/17 07:00 09/05/17 06:59 Dextrose/Sodium Chloride 1,000 ml @ 50 mls/hr Q20H IV 08/07/17 08:15 09/06/17 08:14 08/09/17 00:59 Heparin Sodium (Porcine) (Heparin 5000 units/ml) 5,000 units EVERY 12 HOURS SUBQ 08/06/17 09:00 09/05/17 08:59 08/08/17 20:27 Lorazepam (Ativan 2mg/ml 1ml) 0.5 mg Q4H PRN IV For Anxiety 08/06/17 07:00 08/13/17 06:59 Morphine Sulfate (Morphine Sulfate) 1 mg Q4H PRN IVP For Pain 7-10 08/06/17 07:00 08/13/17 06:59 Nitroglycerin (Ntg) 0.4 mg Q5M X 3 DOSES PRN SL Prn Chest Pain 08/06/17 07:00 09/05/17 06:59 Ondansetron HCl (Zofran) 4 mg Q6H PRN IVP Nausea & Vomiting 08/06/17 07:00 09/05/17 06:59 Pantoprazole (Protonix) 40 mg DAILY IVP 08/07/17 09:00 09/06/17 08:59 08/08/17 09:39 Polyethylene Glycol (Miralax) 17 gm HSPRN PRN ORAL Constipation 08/06/17 07:00 09/05/17 06:59 Promethazine HCl/ Codeine (Phenergan with Codeine) 5 ml Q4H PRN ORAL For Cough 08/06/17 07:00 09/05/17 06:59 08/06/17 09:59 Risperidone (RisperDAL) 1 mg BEDTIME ORAL 08/08/17 21:00 09/07/17 20:59 08/08/17 20:27 Temazepam (Restoril) 15 mg HSPRN PRN ORAL Insomnia 08/06/17 07:00 08/13/17 06:59 GHADA DUNCAN Aug 09, 2017 17:07
--- NOTE | 2017-08-09 19:07 | Diagnostic Imaging Report ---
Indication: Abdominal pain Technique: Altered plantar grayscale and color Doppler imaging of the abdomen Comparison: None Findings: Pancreas is not well seen due to overlying bowel gas and patient body habitus. A 11 mm simple cyst is noted within the left lobe of the liver. Suggestion of increased hepatic echogenicity. Gallbladder is unremarkable in appearance. There is no pericholecystic fluid. No intrahepatic biliary ductal dilatation. Common bile duct measures 3.8 mm. Multiple well-circumscribed anechoic structures are noted within the bilateral kidneys is likely representing cysts. The largest is in the lower pole of the left kidney measures up to 5.4 cm in diameter. It may contain a thin septation. There is no hydronephrosis. Spleen is normal in size and appearance. There is no ascites. Impression: Limited exam due to body habitus and overlying bowel gas. Diffusely increased hepatic echogenicity, most commonly reflective of hepatic steatosis. Additional hepatocellular disease should be excluded clinically. No cholelithiasis. 11 mm simple hepatic cyst. Multiple bilateral simple appearing cysts in the kidneys. No evidence of hydronephrosis bilaterally. Large cyst in the inferior pole of the left kidney may demonstrate a thin septation. Recommend follow-up renal ultrasound in 6-12 months to assess stability.
[2017-08-09 20:00] VITALS: BP 133/70
[2017-08-10] VITALS: BP 127/77
--- NOTE | 2017-08-10 01:45 | Progress Note ---
DATE: 08/09/2017 SUBJECTIVE: The patient is a 76-year-old male patient with generalized weakness. He has altered mental status and confusion. His cognition has declined below baseline, so his attending physician has requested daily psychiatric consultation. He has generalized weakness, COPD, hypertension, and altered mental status. MENTAL STATUS EXAMINATION: This is a 76-year-old male with psychomotor agitation. Mood is depressed. Affect is guarded and restricted. Thought process is disorganized and illogical. Denies any current suicidal or homicidal thoughts. Insight and judgement is poor. DIAGNOSIS: Paranoid schizophrenia with acute exacerbation, rule out dementia with psychosis. PLAN: Namenda 10 mg twice a day to prevent any further decline in his cognition. He was seen and assessed at bedside. Chart was reviewed and discussed with staff. . Chapincito Mendez M.D. DR: CAMELIA JOB#: [id number] CC:
[2017-08-10 04:00] VITALS: BP 115/74
[2017-08-10 07:30] LABS: ANION GAP 10 mmol/L (5-15); BASOPHILS % (AUTO) 0.4 % (0.0-2.0); BLOOD UREA NITROGEN 14 mg/dL (7-18); CALCIUM 8.3 MG/DL (8.5-10.1); CARBON DIOXIDE 24 MMOL/L (21-32); CHLORIDE 105 MMOL/L (98-107); CREATININE 1.2 MG/DL (0.55-1.30); EOSINOPHILS % (AUTO) 1.4 % (0.0-3.0); HEMATOCRIT 41.1 % (42.0-52.0); LYMPHOCYTES % (AUTO) 28.6 % (20.0-45.0); MEAN CORPUSCULAR VOLUME 89 FL (80-99); MONOCYTES % (AUTO) 10.2 % (1.0-10.0); NEUTROPHILS % (AUTO) 59.5 % (45.0-75.0); PLATELET COUNT 190 K/UL (150-450); POTASSIUM 3.7 MMOL/L (3.5-5.1); RED BLOOD COUNT 4.63 M/UL (4.70-6.10); RED CELL DISTRIBUTION WIDTH 11.3 % (11.6-14.8); SODIUM 139 MMOL/L (136-145); WHITE BLOOD COUNT 5.3 K/UL (4.8-10.8)
[2017-08-10 08:00] VITALS: BP 123/81
[2017-08-10] MEDS: Cefepime HCl 2 GM in D5W 55 ML IVPB SCH (09:06)
[2017-08-10] MEDS: Pantoprazole Inj IVP SCH (09:06)
[2017-08-10] MEDS: Aspirin Baby 81mg GT SCH (09:06)
[2017-08-10] MEDS: Heparin 5000 units/ml inj SUBQ SCH (09:07)
--- NOTE | 2017-08-10 11:28 | Infectious Diseases Prog Note ---
Assessment/Plan Assessment/Plan A; Fever resolved Acute renal failure improving DM Dementia H Fatty liver P; Continue cefepime until tomorrow Subjective ROS Limited/Unobtainable: Yes Allergies: Coded Allergies: No Known Allergies (Unverified , 08/05/17) Objective Vital Signs Last 24 Hour Vital Signs Date Time Temp Pulse Resp B/P (MAP) Pulse Ox O2 Delivery O2 Flow Rate FiO2 08/10/17 09:05 98 123/81 08/10/17 08:00 97.7 98 21 123/81 95 08/10/17 04:00 97.9 83 21 115/74 92 08/10/17 00:00 97.9 72 21 127/77 97 08/09/17 20:00 98.2 71 21 133/70 96 08/09/17 16:15 98.4 66 21 140/75 97 Room Air 08/09/17 12:00 97.1 78 18 126/75 75 Height (Feet): 5 Height (Inches): 10.00 Weight (Pounds): 180 General Appearance: no acute distress HEENT: mucous membranes moist Respiratory/Chest: lungs clear Cardiovascular: normal rate Abdomen: soft, non tender Extremities: no edema Neurologic/Psychiatric: other - sleeping Laboratory Tests Test 08/10/17 04:00 08/10/17 06:00 Urine Eosinophils None seen White Blood Count 5.3 K/UL (4.8-10.8) Red Blood Count 4.63 M/UL (4.70-6.10) L Hemoglobin 14.0 G/DL (14.2-18.0) L Hematocrit 41.1 % (42.0-52.0) L Mean Corpuscular Volume 89 FL (80-99) Mean Corpuscular Hemoglobin 30.2 PG (27.0-31.0) Mean Corpuscular Hemoglobin Concent 34.0 G/DL (32.0-36.0) Red Cell Distribution Width 11.3 % (11.6-14.8) L Platelet Count 190 K/UL (150-450) Mean Platelet Volume 6.9 FL (6.5-10.1) Neutrophils (%) (Auto) 59.5 % (45.0-75.0) Lymphocytes (%) (Auto) 28.6 % (20.0-45.0) Monocytes (%) (Auto) 10.2 % (1.0-10.0) H Eosinophils (%) (Auto) 1.4 % (0.0-3.0) Basophils (%) (Auto) 0.4 % (0.0-2.0) Sodium Level 139 MMOL/L (136-145) Potassium Level 3.7 MMOL/L (3.5-5.1) Chloride Level 105 MMOL/L (98-107) Carbon Dioxide Level 24 MMOL/L (21-32) Anion Gap 10 mmol/L (5-15) Blood Urea Nitrogen 14 mg/dL (7-18) Creatinine 1.2 MG/DL (0.55-1.30) Estimat Glomerular Filtration Rate mL/min (>60) Glucose Level 98 MG/DL (74-106) Calcium Level 8.3 MG/DL (8.5-10.1) L Current Medications Medications (Trade) Dose Ordered Sig/Jay Route PRN Reason Start Time Stop Time Status Last Admin Dose Admin Acetaminophen (Tylenol) 650 mg Q4H PRN ORAL fever (temp>100.5F) 08/06/17 07:00 09/05/17 06:59 08/06/17 21:27 Albuterol/ Ipratropium (Albuterol/ Ipratropium) 3 ml Q4H PRN HHN Shortness of Breath 08/06/17 07:00 08/11/17 06:59 Amlodipine Besylate (Norvasc) 2.5 mg DAILY ORAL 08/07/17 09:00 09/06/17 08:59 08/10/17 09:05 Aspirin (ASA) 81 mg DAILY GT 08/07/17 09:00 09/06/17 08:59 08/10/17 09:06 Cefepime HCl 2 gm/ Dextrose 55 ml @ 110 mls/hr Q24H IVPB 08/08/17 08:00 08/15/17 07:59 08/10/17 09:06 Dextrose (Dextrose 50%) STAT PRN IV Hypoglycemia 08/06/17 07:00 09/05/17 06:59 Dextrose/Sodium Chloride 1,000 ml @ 50 mls/hr Q20H IV 08/07/17 08:15 09/06/17 08:14 08/09/17 21:35 Heparin Sodium (Porcine) (Heparin 5000 units/ml) 5,000 units EVERY 12 HOURS SUBQ 08/06/17 09:00 09/05/17 08:59 08/10/17 09:07 Lorazepam (Ativan 2mg/ml 1ml) 0.5 mg Q4H PRN IV For Anxiety 08/06/17 07:00 08/13/17 06:59 Morphine Sulfate (Morphine Sulfate) 1 mg Q4H PRN IVP For Pain 7-10 08/06/17 07:00 08/13/17 06:59 Nitroglycerin (Ntg) 0.4 mg Q5M X 3 DOSES PRN SL Prn Chest Pain 08/06/17 07:00 09/05/17 06:59 Ondansetron HCl (Zofran) 4 mg Q6H PRN IVP Nausea & Vomiting 08/06/17 07:00 09/05/17 06:59 Pantoprazole (Protonix) 40 mg DAILY IVP 08/07/17 09:00 09/06/17 08:59 08/10/17 09:06 Polyethylene Glycol (Miralax) 17 gm HSPRN PRN ORAL Constipation 08/06/17 07:00 09/05/17 06:59 Promethazine HCl/ Codeine (Phenergan with Codeine) 5 ml Q4H PRN ORAL For Cough 08/06/17 07:00 09/05/17 06:59 08/06/17 09:59 Risperidone (RisperDAL) 1 mg BEDTIME ORAL 08/08/17 21:00 09/07/17 20:59 08/09/17 21:34 Temazepam (Restoril) 15 mg HSPRN PRN ORAL Insomnia 08/06/17 07:00 08/13/17 06:59 GHADA DUNCAN Aug 10, 2017 11:28
[2017-08-10 12:00] VITALS: BP 137/86
--- NOTE | 2017-08-10 13:14 | General Progress Note ---
Assessment/Plan Problem List: (1) UTI (urinary tract infection) ICD Codes: N39.0 - Urinary tract infection, site not specified SNOMED: 68276721 (2) Generalized weakness ICD Codes: R53.1 - Weakness SNOMED: 45344864 (3) Dysphagia ICD Codes: R13.10 - Dysphagia, unspecified SNOMED: 06590784, 715607252 (4) History of dementia ICD Codes: Z86.59 - Personal history of other mental and behavioral disorders SNOMED: 988506515 (5) CVA (cerebral vascular accident) ICD Codes: I63.9 - Cerebral infarction, unspecified SNOMED: 693492653 (6) Fever ICD Codes: R50.9 - Fever, unspecified SNOMED: 743972904 Status: stable, progressing, tolerating diet Assessment/Plan ot pt diet abx dc if clear Subjective Constitutional: Reports: weakness Allergies: Coded Allergies: No Known Allergies (Unverified , 08/05/17) All Systems: reviewed and negative except above Subjective calm in bed Objective Last 24 Hour Vital Signs Date Time Temp Pulse Resp B/P (MAP) Pulse Ox O2 Delivery O2 Flow Rate FiO2 08/10/17 12:00 97.9 84 18 137/86 94 08/10/17 09:05 98 123/81 08/10/17 08:00 97.7 98 21 123/81 95 08/10/17 04:00 97.9 83 21 115/74 92 08/10/17 00:00 97.9 72 21 127/77 97 08/09/17 20:00 98.2 71 21 133/70 96 08/09/17 16:15 98.4 66 21 140/75 97 Room Air Intake and Output 08/09/17 08/10/17 19:00 07:00 Intake Total 505 ml 740 ml Output Total 800 ml Balance 505 ml -60 ml Intake Oral 240 ml IV Total 505 ml 500 ml Output Urine Total 800 ml # Voids 5 Laboratory Tests 08/10/17 04:00: Urine Eosinophils None seen 08/10/17 06:00: White Blood Count 5.3, Red Blood Count 4.63L, Hemoglobin 14.0L, Hematocrit 41.1L , Mean Corpuscular Volume 89, Mean Corpuscular Hemoglobin 30.2, Mean Corpuscular Hemoglobin Concent 34.0, Red Cell Distribution Width 11.3L, Platelet Count 190, Mean Platelet Volume 6.9, Neutrophils (%) (Auto) 59.5, Lymphocytes (%) (Auto) 28.6, Monocytes (%) (Auto) 10.2H, Eosinophils (%) (Auto) 1.4, Basophils (%) (Auto) 0.4, Sodium Level 139, Potassium Level 3.7, Chloride Level 105, Carbon Dioxide Level 24, Anion Gap 10, Blood Urea Nitrogen 14, Creatinine 1.2, Estimat Glomerular Filtration Rate , Glucose Level 98, Calcium Level 8.3L Height (Feet): 5 Height (Inches): 10.00 Weight (Pounds): 180 General Appearance: lethargic, confused EENT: normal ENT inspection Neck: normal alignment Cardiovascular: normal peripheral pulses, normal rate, regular rhythm Respiratory/Chest: chest wall non-tender, lungs clear, normal breath sounds Abdomen: normal bowel sounds, non tender, soft Extremities: normal inspection Edema: no edema noted Arm (L), no edema noted Arm (R), no edema noted Leg (L), no edema noted Leg (R), no edema noted Pedal (L), no edema noted Pedal (R), no edema noted Generalized Neurologic: responsive, motor weakness Skin: normal pigmentation, warm/dry JEFERSON ORTEGA Aug 10, 2017 13:14
--- NOTE | 2017-08-10 15:06 | Nephrology Progress Note ---
Assessment/Plan Problem List: (1) Acute renal failure (2) Dehydration Assessment Renal failure- Acute ? underlying Chronic: Cr down , resolved h/o HTN (1) CVA (cerebral vascular accident) (2) Generalized weakness (3) Dysphagia (4) History of dementia Plan Hydrate- monitor renal parameters UA and Urine studies Adjust BP meds per consultants Subjective ROS Limited/Unobtainable: No Constitutional: Reports: malaise Objective Objective Last 24 Hour Vital Signs Date Time Temp Pulse Resp B/P (MAP) Pulse Ox O2 Delivery O2 Flow Rate FiO2 08/10/17 12:00 97.9 84 18 137/86 94 08/10/17 09:05 98 123/81 08/10/17 08:00 97.7 98 21 123/81 95 08/10/17 04:00 97.9 83 21 115/74 92 08/10/17 00:00 97.9 72 21 127/77 97 08/09/17 20:00 98.2 71 21 133/70 96 08/09/17 16:15 98.4 66 21 140/75 97 Room Air Intake and Output 08/09/17 08/10/17 19:00 07:00 Intake Total 505 ml 740 ml Output Total 800 ml Balance 505 ml -60 ml Intake Oral 240 ml IV Total 505 ml 500 ml Output Urine Total 800 ml # Voids 5 Laboratory Tests 08/10/17 04:00: Urine Eosinophils None seen 08/10/17 06:00: White Blood Count 5.3, Red Blood Count 4.63L, Hemoglobin 14.0L, Hematocrit 41.1L , Mean Corpuscular Volume 89, Mean Corpuscular Hemoglobin 30.2, Mean Corpuscular Hemoglobin Concent 34.0, Red Cell Distribution Width 11.3L, Platelet Count 190, Mean Platelet Volume 6.9, Neutrophils (%) (Auto) 59.5, Lymphocytes (%) (Auto) 28.6, Monocytes (%) (Auto) 10.2H, Eosinophils (%) (Auto) 1.4, Basophils (%) (Auto) 0.4, Sodium Level 139, Potassium Level 3.7, Chloride Level 105, Carbon Dioxide Level 24, Anion Gap 10, Blood Urea Nitrogen 14, Creatinine 1.2, Estimat Glomerular Filtration Rate , Glucose Level 98, Calcium Level 8.3L Height (Feet): 5 Height (Inches): 10.00 Weight (Pounds): 180 General Appearance: no apparent distress Abdomen: soft Objective no change SHAMAR NORMAN Aug 10, 2017 15:06
--- NOTE | 2017-08-10 15:50 | Pulmonology Progress Note ---
Assessment/Plan Problems: (1) UTI (urinary tract infection) (2) Fever (3) CVA (cerebral vascular accident) (4) Generalized weakness (5) Dysphagia (6) History of dementia Assessment/Plan no new complains improving continue feeding check electrolytes check cultures continue abx tolerating diet dvt prophylaxis. Subjective Constitutional: Reports: no symptoms HEENT: Repors: no symptoms Respiratory: Reports: no symptoms Allergies: Coded Allergies: No Known Allergies (Unverified , 08/05/17) Objective Last 24 Hour Vital Signs Date Time Temp Pulse Resp B/P (MAP) Pulse Ox O2 Delivery O2 Flow Rate FiO2 08/10/17 12:00 97.9 84 18 137/86 94 08/10/17 09:05 98 123/81 08/10/17 08:00 97.7 98 21 123/81 95 08/10/17 04:00 97.9 83 21 115/74 92 08/10/17 00:00 97.9 72 21 127/77 97 08/09/17 20:00 98.2 71 21 133/70 96 08/09/17 16:15 98.4 66 21 140/75 97 Room Air Intake and Output 08/09/17 08/10/17 19:00 07:00 Intake Total 505 ml 740 ml Output Total 800 ml Balance 505 ml -60 ml Intake Oral 240 ml IV Total 505 ml 500 ml Output Urine Total 800 ml # Voids 5 Objective General Appearance: WD/WN HEENT: normocephalic, atraumatic Respiratory/Chest: chest wall non-tender, lungs clear Cardiovascular: normal peripheral pulses, normal rate Abdomen: normal bowel sounds, soft, non tender Genitourinary: normal external genitalia Extremities: no cyanosis 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, no motor/sensory deficits Lymphatic: no neck adenopathy Laboratory Tests 08/10/17 04:00: Urine Eosinophils None seen 08/10/17 06:00: White Blood Count 5.3, Red Blood Count 4.63L, Hemoglobin 14.0L, Hematocrit 41.1L , Mean Corpuscular Volume 89, Mean Corpuscular Hemoglobin 30.2, Mean Corpuscular Hemoglobin Concent 34.0, Red Cell Distribution Width 11.3L, Platelet Count 190, Mean Platelet Volume 6.9, Neutrophils (%) (Auto) 59.5, Lymphocytes (%) (Auto) 28.6, Monocytes (%) (Auto) 10.2H, Eosinophils (%) (Auto) 1.4, Basophils (%) (Auto) 0.4, Sodium Level 139, Potassium Level 3.7, Chloride Level 105, Carbon Dioxide Level 24, Anion Gap 10, Blood Urea Nitrogen 14, Creatinine 1.2, Estimat Glomerular Filtration Rate , Glucose Level 98, Calcium Level 8.3L Current Medications Medications (Trade) Dose Ordered Sig/Jay Route PRN Reason Start Time Stop Time Status Last Admin Dose Admin Acetaminophen (Tylenol) 650 mg Q4H PRN ORAL fever (temp>100.5F) 08/06/17 07:00 09/05/17 06:59 08/06/17 21:27 Albuterol/ Ipratropium (Albuterol/ Ipratropium) 3 ml Q4H PRN HHN Shortness of Breath 08/06/17 07:00 08/11/17 06:59 Amlodipine Besylate (Norvasc) 2.5 mg DAILY ORAL 08/07/17 09:00 09/06/17 08:59 08/10/17 09:05 Aspirin (ASA) 81 mg DAILY GT 08/07/17 09:00 09/06/17 08:59 08/10/17 09:06 Cefepime HCl 2 gm/ Dextrose 55 ml @ 110 mls/hr Q24H IVPB 08/08/17 08:00 08/15/17 07:59 08/10/17 09:06 Dextrose (Dextrose 50%) STAT PRN IV Hypoglycemia 08/06/17 07:00 09/05/17 06:59 Dextrose/Sodium Chloride 1,000 ml @ 50 mls/hr Q20H IV 08/07/17 08:15 09/06/17 08:14 08/09/17 21:35 Heparin Sodium (Porcine) (Heparin 5000 units/ml) 5,000 units EVERY 12 HOURS SUBQ 08/06/17 09:00 09/05/17 08:59 08/10/17 09:07 Lorazepam (Ativan 2mg/ml 1ml) 0.5 mg Q4H PRN IV For Anxiety 08/06/17 07:00 08/13/17 06:59 Morphine Sulfate (Morphine Sulfate) 1 mg Q4H PRN IVP For Pain 7-10 08/06/17 07:00 08/13/17 06:59 Nitroglycerin (Ntg) 0.4 mg Q5M X 3 DOSES PRN SL Prn Chest Pain 08/06/17 07:00 09/05/17 06:59 Ondansetron HCl (Zofran) 4 mg Q6H PRN IVP Nausea & Vomiting 08/06/17 07:00 09/05/17 06:59 Pantoprazole (Protonix) 40 mg ACBREAKFAST ORAL 08/11/17 06:30 09/10/17 06:29 Polyethylene Glycol (Miralax) 17 gm HSPRN PRN ORAL Constipation 08/06/17 07:00 09/05/17 06:59 Promethazine HCl/ Codeine (Phenergan with Codeine) 5 ml Q4H PRN ORAL For Cough 08/06/17 07:00 09/05/17 06:59 08/06/17 09:59 Risperidone (RisperDAL) 1 mg BEDTIME ORAL 08/08/17 21:00 09/07/17 20:59 08/09/17 21:34 Temazepam (Restoril) 15 mg HSPRN PRN ORAL Insomnia 08/06/17 07:00 08/13/17 06:59 CARLA PARDO Aug 10, 2017 15:50
[2017-08-10 16:00] VITALS: BP 140/84
[2017-08-10] MEDS ORDERED: AMLODIPINE BES2.5 MG ORAL (16:27)
[2017-08-10] MEDS ORDERED: ASPIR 8181 MG ORAL (16:27)
[2017-08-10] MEDS ORDERED: HEPARIN SO5000 UNIT2 SUBQ (16:28)
[2017-08-10] MEDS ORDERED: PROMETHAZINE-C118 M1 ORAL (16:28)
[2017-08-10] MEDS ORDERED: DUONEB 0.5-3(2.53 ML HHN (16:29)
[2017-08-10] MEDS ORDERED: LORAZEPAM0.5 MG ORAL (16:30)
[2017-08-10] MEDS ORDERED: NITROSTAT0.4 M2 SL (16:31)
--- NOTE | 2017-08-10 16:31 | GI Progress Note ---
Assessment/Plan Problems: (1) Dehydration ICD Codes: E86.0 - Dehydration SNOMED: 59332191 (2) CVA (cerebral vascular accident) ICD Codes: I63.9 - Cerebral infarction, unspecified SNOMED: 022479115 (3) History of dementia ICD Codes: Z86.59 - Personal history of other mental and behavioral disorders SNOMED: 352566454 (4) Encounter for PEG (percutaneous endoscopic gastrostomy) ICD Codes: Z43.1 - Encounter for attention to gastrostomy SNOMED: 710314104, 073482278 (5) Dysphagia ICD Codes: R13.10 - Dysphagia, unspecified SNOMED: 86381792, 301764543 (6) Generalized weakness ICD Codes: R53.1 - Weakness SNOMED: 64766471 Status: stable Status Narrative Discussed with Dr. Marroquin. Assessment/Plan ST eval reviewed >> LIQUIFIED PUREED LIKE HONEY THICK SOUP CONSISTENCY (TSP ONLY) USING POSTED ASP PRECAUTIONS strict aspiration precautions PPI PT/OT evaluation fu labs fu neuro recs okay for DC per GI standpoint Subjective Gastrointestinal/Abdominal: Reports: no symptoms Subjective refused NGT Objective Last 24 Hour Vital Signs Date Time Temp Pulse Resp B/P (MAP) Pulse Ox O2 Delivery O2 Flow Rate FiO2 08/10/17 12:00 97.9 84 18 137/86 94 08/10/17 09:05 98 123/81 08/10/17 08:00 97.7 98 21 123/81 95 08/10/17 04:00 97.9 83 21 115/74 92 08/10/17 00:00 97.9 72 21 127/77 97 08/09/17 20:00 98.2 71 21 133/70 96 Intake and Output 08/09/17 08/10/17 19:00 07:00 Intake Total 505 ml 790 ml Output Total 800 ml Balance 505 ml -10 ml Intake Oral 240 ml IV Total 505 ml 550 ml Output Urine Total 800 ml # Voids 5 Laboratory Tests Test 08/10/17 04:00 08/10/17 06:00 Urine Eosinophils None seen White Blood Count 5.3 K/UL (4.8-10.8) Red Blood Count 4.63 M/UL (4.70-6.10) L Hemoglobin 14.0 G/DL (14.2-18.0) L Hematocrit 41.1 % (42.0-52.0) L Mean Corpuscular Volume 89 FL (80-99) Mean Corpuscular Hemoglobin 30.2 PG (27.0-31.0) Mean Corpuscular Hemoglobin Concent 34.0 G/DL (32.0-36.0) Red Cell Distribution Width 11.3 % (11.6-14.8) L Platelet Count 190 K/UL (150-450) Mean Platelet Volume 6.9 FL (6.5-10.1) Neutrophils (%) (Auto) 59.5 % (45.0-75.0) Lymphocytes (%) (Auto) 28.6 % (20.0-45.0) Monocytes (%) (Auto) 10.2 % (1.0-10.0) H Eosinophils (%) (Auto) 1.4 % (0.0-3.0) Basophils (%) (Auto) 0.4 % (0.0-2.0) Sodium Level 139 MMOL/L (136-145) Potassium Level 3.7 MMOL/L (3.5-5.1) Chloride Level 105 MMOL/L (98-107) Carbon Dioxide Level 24 MMOL/L (21-32) Anion Gap 10 mmol/L (5-15) Blood Urea Nitrogen 14 mg/dL (7-18) Creatinine 1.2 MG/DL (0.55-1.30) Estimat Glomerular Filtration Rate mL/min (>60) Glucose Level 98 MG/DL (74-106) Calcium Level 8.3 MG/DL (8.5-10.1) L Height (Feet): 5 Height (Inches): 10.00 Weight (Pounds): 180 General Appearance: WD/WN, no apparent distress, alert Cardiovascular: normal rate Respiratory/Chest: normal breath sounds, no respiratory distress Abdominal Exam: normal bowel sounds, non tender, soft Extremities: normal range of motion, non-tender Michelle Knight N.P. Aug 10, 2017 16:31
[2017-08-10] MEDS ORDERED: ZOFRAN4 M3 ORAL (16:32)
[2017-08-10] MEDS ORDERED: PANTOPRAZOLE SO40 MG ORAL (16:32)
[2017-08-10] MEDS ORDERED: RISPERDAL1 MG PO (16:33)
[2017-08-10] MEDS ORDERED: RESTORIL15 MG ORAL (16:33)
[2017-08-10] MEDS ORDERED: MIRALAX17 G2 ORAL (16:33)
[2017-08-10] MEDS: D5NS 1,000 ML IV SCH (16:52)
[2017-08-10 20:00] VITALS: BP 128/80
--- NOTE | 2017-08-11 09:15 | Progress Note ---
SUBJECTIVE: The patient is a 76-year-old male patient with generalized weakness. This patient is confused and disorganized. He has got mood lability secondary to stress of his medical illness, and he is confused and disorganized. That is why, he does require acute inpatient treatment at this time. This patient does have some confusion and disorganized thought process and mood lability secondary to stress of his medical illness. As far as this patient's reason for psychiatric consultation, because the patient has altered mental status, confusion and generalized weakness, but his cognition has declined below baseline secondary to stress of his medical illness. That is why, the attending physician has requested daily psychiatric consultation. MENTAL STATUS EXAMINATION: This is a 76-year-old male with psychomotor agitation. Mood is irritable and agitated. Affect guarded and restricted. Thought process is disorganized and illogical. Denies any current suicidal or homicidal thoughts. Insight and judgment is poor. DIAGNOSIS: Paranoid schizophrenia, rule out dementia with psychosis. PLAN: My plan for this patient is to treat him with the medication regimen of Risperdal 1 mg p.o. at bedtime to prevent any further decline in his cognition and continue to be followed by Psychiatry throughout hospital course to reduce agitation, stabilize his mood, and prevent any further decline of his cognition. Also Ativan 0.5 mg IV q.4 h. p.r.n. anxiety. Chart reviewed. Discussed with staff 01:11. The patient was seen and assessed at bedside. Chart reviewed. Discussed with the staff. Supportive therapy provided. Chapincito Mendez M.D. DR: CAMELIA JOB#: [id number] CC:
--- NOTE | 2017-08-11 15:24 | Diagnostic Imaging Report ---
Indication: Dysphasia Procedure and findings: Real-time fluoroscopic imaging performed in a lateral projection in conjunction with the speech pathologist evaluation. Variable consistencies of barium given per mouth. Findings: Significant abnormalities of both oral and pharyngeal phases of swallowing are demonstrated. Total fluoroscopic time 300 seconds. Trace silent aspiration demonstrated with thin and nectar. Abnormal video swallow. Please refer to speech pathology evaluation for more information.
--- NOTE | 2017-08-12 14:44 | Discharge Summary ---
Discharge Summary Hospital Course Date of Admission Aug 05, 2017 at 22:45 Date of Discharge Aug 10, 2017 at 21:50 Admitting Diagnosis WEAKNESS LILLIAM Talavera is a 76 year old male who was admitted on Aug 05, 2017 at 22:45 for Weakness Hospital Course [id number] Discharge Discharge Disposition Patient was discharged to SNF/Subacute Facility(03) Discharge Diagnoses: Susan Caldera NP Aug 12, 2017 14:44
--- NOTE | 2017-08-12 22:00 | Discharge Summary 2 SIG ---
DATE OF ADMISSION: 08/05/2017 DATE OF DISCHARGE: 08/10/2017 CONSULTANTS: 1. Bay Marroquin M.D. 2. Chapincito Mendez M.D. 3. Glenn Velez M.D. 4. Rajesh Chacon M.D. 5. Angelito Garnett M.D. 6. Petrona Foote M.D. 7. Arvin Aldana M.D. HOSPITAL COURSE: The patient is a 76-year-old male from [facility], who presented with weakness and lethargy. He has history of COPD, hypertension, and encephalopathy. On evaluation at ED, head CT did not show any acute disease. It has no evidence of acute intracranial hemorrhage, mass effect, or edema. There was atrophy suggestive of chronic microvascular ischemic changes. The patient was admitted for evaluation of generalized weakness. He underwent neurological evaluation with Dr. Aldana. Apparently from [facility], he was noted to have left-sided weakness with facial droop and confusion. 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 He was given thiamine supplements and was started on aspirin daily. He was placed on n.p.o. Brain MRI done showed no evidence of acute infarct, hemorrhage, or mass effect. Echocardiogram done showed ejection fraction of 60%. He had renal failure. Creatinine on admission was 1.9. Abdominal ultrasound was limited due to underlying bowel gas and he had diffuse hepatic echogenicity. He also had psychiatric evaluation. He was lethargic, he was difficult to be engaged and to answer questions. He had fever and was given cefepime. He had a video swallow exam done. He did not pass the swallow evaluation and was recommended nonoral type of feeding and the insertion of NGT. Another swallow evaluation done on 08/10/2017, recommended the patient could continue p.o. for quality of life . The patient was eventually discharged back to snf facility. FINAL DIAGNOSES: 1. Urinary tract infection. 2. Cerebrovascular accident. 3. Generalized weakness. 4. Dysphagia. 5. Dementia. 6. Dehydration. 7. Acute renal failure, acute with possible underlying chronic renal failure. DISPOSITION: The patient was discharged to snf facility. DISCHARGE MEDICATIONS: Refer to medication list. Iglesia Reed D.O. I have been assigned to dictate discharge summary on this account and I was not involved in the patient's management. Susan Caldera N.P. DR: JAN JOB#: [id number] CC: KRISHNA
--- NOTE | 2017-08-22 20:34 | Diagnostic Imaging Report ---
APPROVED REPORT CPT Code: 38209 Vascular Symptoms Unsteady Gait Comments: CVA. Doppler Spectral Velocity Analysis RightLeft mICA45/13 cm/smICA43/15 cm/s pICA38/13 cm/spICA32/11 cm/s ECA63/9 cm/sECA65/1 cm/s mCCA59/11 cm/smCCA67/10 cm/s pCCA55/12 cm/spCCA65/17 cm/s Right ICA/CCA ratio0.8Left ICA/CCA ratio0.6 Technically difficult, limited study due to pt body habitus. Note: Inability to visualized bilateral vertebral arteries. RIGHT SIDE: CCA/BULB - Imaging reveals irregular, minimal plaque in the carotid bulb. ICA arteries. VERTEBRAL - The vertebral artery was not visualized due to pt body habitus. LEFT SIDE: CCA/BULB - Imaging reveals mild to moderate, smooth plaque in the mid carotid artery with stenosis (approximately 40% - 50%), and irregular, minimal plaque in the external carotid arteries. VERTEBRAL - The vertebral artery was not visualized due to pt body habitus.
--- NOTE | 2017-08-22 20:35 | Diagnostic Imaging Report ---
APPROVED REPORT CPT Code: 56947 Present Symptoms Lower Extremity Pain: Comments: R/O DVT. BILATERAL LOWER EXTREMITY VENOUS DUPLEX: Imaging reveals a patent deep venous system bilaterally. There is no evidence of thrombus within the femoral, popliteal or tibial segments. The greater saphenous veins are also within normal limits. Doppler indicates normal spontaneous flow within these segments.
== END 2017-08-10 21:50 | DRG 45 ==
LOC: EDBD 21:37 → EMR 21:56 → 4E 22:45 → EDBEDREQ 23:55 → 4E 08-06 01:15
DX: I63.9 Cerebral infarction, unspecified (principal); N17.9 Acute kidney failure, unspecified; G81.94 Hemiplegia, unspecified affecting left nondominant side; F03.90 Unspecified dementia, unspecified severity, without behavioral disturbance, psychotic disturbance, mood disturbance, and anxiety; J44.9 Chronic obstructive pulmonary disease, unspecified; N39.0 Urinary tract infection, site not specified; R13.10 Dysphagia, unspecified; E86.0 Dehydration; E11.9 Type 2 diabetes mellitus without complications; N18.9 Chronic kidney disease, unspecified; F01.50 Vascular dementia, unspecified severity, without behavioral disturbance, psychotic disturbance, mood disturbance, and anxiety; F32.9 Major depressive disorder, single episode, unspecified; F20.0 Paranoid schizophrenia; I12.9 Hypertensive chronic kidney disease with stage 1 through stage 4 chronic kidney disease, or unspecified chronic kidney disease
CPT/HCPCS: 36415; 70450; 70551; 71045; 74018; 74230; 76700; 80048; 80053; 80061; 81001; 82140; 82550; 82553; 82607; 83690; 83880; 84165; 84207; 84300; 84425; 84443; 84446; 84484; 85025; 85610; 85651; 85730; 86039; 87040; 87081; 89050; 93005; 93306; 93880; 93970; 94664; 99285